=== PATIENT | female | born 1950 | race Caucasian/White ===

== ENCOUNTER 2018-04-21 05:44 | Inpatient (IN) | payer OTHER ==
[2018-04-21] MEDS ORDERED: NS 1,000 ML IV ONE (05:46)
[2018-04-21] MEDS ORDERED: ALTEPLASE 100 MG/100 ML VIAL IV ONE ×2 (05:47→06:06)
--- NOTE | 2018-04-21 05:51 | EDPHY ---
H & P Time Seen by Provider: 04/21/18 05:48 HPI/ROS: HPI CHIEF COMPLAINT: Left-sided weakness, stroke alert activated by EMS. HISTORY OF PRESENT ILLNESS: This is a 68-year-old female presents emergency room by EMS as a stroke alert. 911 was called by her. She lives in a private residence alone. EMS and police had to force entry in the house the patient called 911 and they were unable to determine any communication on the 911 phone. It was open line they came here heavy breathing. He was found face down on the ground when EMS arrived and police arrived they had to break into her house to get to her. Upon arrival they evaluated her noticed that she has significant left-sided weakness left arm left leg left facial droop expressive aphasia however she is able to follow commands she appears to be looking right and able to move her right upper extremity right lower extremity. Is unclear exactly what time this started however the patient is able to nod that it happened tonight. Patient arrived to the emergency room with significant left-sided weakness right gaze preference, left facial droop concern for severe stroke. Past Medical History: Unknown medical history Past Surgical History: unknown surgical history Social History: unknown Family History: Unknown ROS REVIEW OF SYSTEMS: Limited due to patient's clinical state. Exam Constitutional triage nursing summary reviewed, vital signs reviewed, awake/ alert. Eyes normal conjunctivae and sclera, EOMI, PERRLA. HENT normal inspection, atraumatic, moist mucus membranes, no epistaxis, neck supple/ no meningismus, no raccoon eyes. Respiratory clear to auscultation bilaterally, normal breath sounds, no respiratory distress, no wheezing. Cardiovascular rate normal, regular rhythm, no murmur, no edema, distal pulses normal. Gastrointestinal soft, non-tender, no rebound, no guarding, normal bowel sounds, no distension, no pulsatile mass. Genitourinary no CVA tenderness. Musculoskeletal no midline vertebral tenderness, full range of motion, no calf swelling, no tenderness of extremities, no meningismus, good pulses, neurovascularly intact. Skin pink, warm, & dry, no rash, skin atraumatic. Neurologic on exam the patient does follow commands she moves her right side okay, her left side she does not move does not move her left upper extremity or left lower extremity has a right gaze preference, left facial droop concerning for a significant left-sided weakness concerning for a stroke. Psychiatric normal mood/affect. Heme/Lymph/Immune no lymphadenopathy. Differential Diagnosis: Medical Decision Making: Plan for this patient IV establishment she will go directly to CT to have a CT scan head without contrast, CT angiogram head and neck, [facility] be consulted. Re-evaluation: Patient here in emergency room is unable to move her left arm or left leg. She has a right gaze preference left facial droop inability to move her left arm left leg concerning for a rather significant stroke Is unclear the exact time of onset however the patient does not that it happened tonight. She does have significant expressive aphasia. NIH Stroke Scale/Score (NIHSS) from [employer] on 04/21/2018 All calculations should be rechecked by clinician prior to use RESULT SUMMARY: 15 points NIH Stroke Scale INPUTS: 1A: Level of consciousness > 0 = Alert; keenly responsive 1B: Ask month and age > 2 = Aphasic 1C: 'Blink eyes' & 'squeeze hands' > 0 = Performs both tasks 2: Horizontal extraocular movements > 0 = Normal 3: Visual simpson > 0 = No visual loss 4: Facial palsy > 2 = Partial paralysis (lower face) 5A: Left arm motor drift > 4 = No movement 5B: Right arm motor drift > 0 = No drift for 10 seconds 6A: Left leg motor drift > 4 = No movement 6B: Right leg motor drift > 0 = No drift for 5 seconds 7: Limb Ataxia > 0 = No ataxia 8: Sensation > 0 = Normal; no sensory loss 9: Language/aphasia > 3 = Mute/global aphasia: no usable speech/auditory comprehension 10: Dysarthria > 0 = Normal 11: Extinction/inattention > 0 = No abnormality 0609AM: Patient here in the emergency room and ER room 2. The patient is CT scan head without contrast which is negative for bleed. Negative for infarct Additionally the patient had a CT angiogram head and neck that shows no large vessel dissection or aneurysm or thrombus The patient was consult with Dr. Jimmie Alvarado. On review with the patient the patient has significant left-sided weakness left arm left leg expressive aphasia left facial droop and prefers to look to the right concerning for rather large stroke. The patient through communication with myself as well as [facility] Dr. Alvarado, is able to report that her symptoms started 5:00 a.m. She is able to tell us by nodding yes to when they started she states no at 4:00 a.m. She did not wake up with the symptoms and states that they started at 5:00 a.m.. She denies being on any blood thinners She arrives very hypertensive 227/127. For this she has be given 10 mg IV hydralazine, and started on nicardipine drip to lower her blood pressure to the appropriate range for tPA. She does meet criteria for tPA given that she is in the stroke window Her symptoms started at 5:00 a.m. According to her and there very significant It is now 6:00 a.m.. We had a discussion with her and Neurology [facility] Dr. Alvarado, we discussed the medication of tPA with her risk versus benefit. She would like to proceed with the tPA and she understands the risks. Plan for tPA after blood pressure lowered. Plan for admission to the ICU status post tPA. Critical Care: Total Critical Care Time Spent Managing this Patient: 85 Minutes. This time was spent Exclusively with this patient. This Care was exclusive of procedures. The Organ System/life at risk was STROKE This Patient was in Critical Condition because stroke with left-sided deficits left arm left leg left facial droop expressive aphasia. Blood pressure down to 180 systolic. Will proceed with tPA. Source: Patient, EMS Constitutional: Initial Vital Signs Heart Rate 113 H 04/21/18 05:40 Respiratory Rate 20 04/21/18 05:40 Blood Pressure 209/148 H 04/21/18 05:40 O2 Sat (%) 96 04/21/18 05:40 O2 Delivery Mode Nasal Cannula O2 (L/minute) 2 Allergies/Adverse Reactions: No Known Allergies Allergy (Unverified 04/21/18 06:11) Medical Decision Making - Data Points Laboratory Results: Laboratory Results 04/21/18 05:45 04/21/18 05:45 Medications Given: Acetaminophen (Tylenol) 650 mg PO Q4HRS PRN PRN Reason: Pain, Mild/Fever, Can Take PO Stop: 10/18/18 06:29 Last Admin: 04/21/18 13:25 Dose: 650 mg Aspirin (Aspirin) 325 mg PO DAILY [facility] Stop: 10/19/18 14:14 Last Admin: 04/22/18 14:27 Dose: 325 mg Atorvastatin Calcium (Lipitor) 20 mg PO DAILY [facility] Stop: 10/19/18 14:14 Last Admin: 04/22/18 14:27 Dose: 20 mg Sodium Chloride (Ns) 1,000 mls @ 75 mls/hr IV CONT DIMITRY Stop: 10/18/18 06:29 Last Admin: 04/21/18 09:17 Dose: 1,000 mls Famotidine/Sodium Chloride (Pepcid 20 Mg (Premix)) 50 mls @ 200 mls/hr IV Q12HRS DIMITRY Stop: 10/18/18 12:14 Last Admin: 04/22/18 21:00 Dose: 50 mls Labetalol HCl (Labetalol Hcl) 10 mg IVP Q4H PRN PRN Reason: HYPERTENSION>180 SBP Stop: 10/19/18 14:27 Last Admin: 04/22/18 22:05 Dose: 10 mg Ondansetron HCl (Zofran Odt) 4 mg PO Q4HRS PRN PRN Reason: Nausea/Vomiting, Use 1st Stop: 10/18/18 06:29 Last Admin: 04/21/18 11:42 Dose: 4 mg Discontinued Medications Alteplase, Recombinant (Activase) 56.862 mg 0.81 mg/kg (56.862 mg) IV ONCE ONE PRN Reason: Protocol Stop: 04/21/18 06:07 Last Admin: 04/21/18 06:30 Dose: 56.862 mg Alteplase, Recombinant (Activase) 6.318 mg 0.09 mg/kg (6.318 mg) IV ONCE ONE PRN Reason: Protocol Stop: 04/21/18 06:07 Last Admin: 04/21/18 06:29 Dose: 6.318 mg Hydralazine HCl (Apresoline) 10 mg IVP EDNOW ONE Stop: 04/21/18 06:07 Last Admin: 04/21/18 06:01 Dose: 10 mg Sodium Chloride (Ns) 1,000 mls @ 500 mls/hr IV EDNOW ONE PRN Reason: Protocol Stop: 04/21/18 07:45 Last Admin: 04/21/18 06:15 Dose: 1,000 mls Nicardipine/Sodium Chloride (Cardene 0.1 Mg/Ml (Premix)) 200 mls @ 0 mls/hr IV CONT DIMITRY; Titrate PRN Reason: Protocol Stop: 10/18/18 06:29 Last Admin: 04/21/18 06:10 Dose: 200 mls Nicardipine/Sodium Chloride (Cardene 0.1 Mg/Ml (Premix)) 200 mls @ 0 mls/hr IV CONT DIMITRY; Titrate PRN Reason: Protocol Stop: 10/18/18 06:59 Last Admin: 04/22/18 03:11 Dose: 200 mls Potassium Chloride (Potassium Cl 10 Meq (Premix)) 100 mls @ 100 mls/hr IV Q1H DIMITRY Stop: 04/21/18 19:29 Last Admin: 04/21/18 21:36 Dose: 100 mls Labetalol HCl (Labetalol Hcl) 10 mg IVP Q4H PRN PRN Reason: HYPERTENSION Stop: 10/19/18 14:29 Last Admin: 04/22/18 14:27 Dose: 10 mg Point of Care Test Results: Chemistry 04/21/18 04/21/18 05:53 05:52 POC Sodium 139 mEq/L mEq/L (135-145) POC Potassium 3.2 mEq/L L mEq/L (3.3-5.0) POC Chloride 101 mEq/L mEq/L (97-110) POC BUN 10 mg/dL mg/dL (7-23) POC Creatinine 0.5 mg/dL L mg/dL (0.6-1.0) POC Glucose 162 mg/dL H mg/dL (70-100) POC Troponin I 0.00 ng/mL ng/mL (0.00-0.08) ISTAT H&H 04/21/18 05:52 POC Hgb 17.7 gm/dL H gm/dL (12.6-16.3) POC Hct 52 % H % (38-47) Departure - Departure Disposition: [facility] Acute Clinical Impression: CVA (cerebral vascular accident) Qualifiers: CVA mechanism: unspecified Qualified Code(s): I63.9 - Cerebral infarction, unspecified Condition: Critical
[2018-04-21] MEDS ORDERED: ONDANSETRON 4 MG/2 ML VIAL ONE ×2 (05:58→05:59)
[2018-04-21] MEDS ORDERED: hydrALAZINE 20 MG/ML VIAL ONE (05:59)
[2018-04-21 06:05] LABS: PLATELET COUNT 284 10^3/uL (150-400)
[2018-04-21] MEDS ORDERED: niCARdipine/NACL/200 ML BAG IV ONE (06:06)
[2018-04-21] MEDS ORDERED: hydrALAZINE 20 MG/ML VIAL IVP ONE (06:06)
[2018-04-21] MEDS ORDERED: ALTEPLASE 1 MG/ML SYR IV ONE (06:06)
[2018-04-21 06:13] LABS: INR 0.97 (0.83-1.16); PROTIME(PATIENT) 13.1 SEC (12.0-15.0)
[2018-04-21] MEDS ORDERED: niCARdipine/NACL 200 ML IV SCH (06:30)
[2018-04-21] MEDS ORDERED: ONDANSETRON 4 MG/2 ML VIAL IVP PRN (06:30)
[2018-04-21] MEDS ORDERED: ONDANSETRON DISINTEGRATING 4 MG TAB PO PRN (06:30)
[2018-04-21] MEDS: NS 1,000 ML IV SCH (09:17)
[2018-04-21] MEDS: niCARdipine/NACL 200 ML IV SCH ×2 (09:17→14:48)
--- NOTE | 2018-04-21 09:35 | GHP ---
DATE OF ADMISSION: 04/21/2018 SOURCE: Patient is able to provide some minimal history as she has notable aphasia. She is able to nod her head and say some yes/no answers. EMR was reviewed and case discussed with ED provider. CHIEF COMPLAINT: Left-sided weakness, aphasia. HISTORY OF PRESENT ILLNESS: This is a pleasant 68-year-old female with past medical history signific ant for HTN, HLD, who presents to the emergency department today via EMS after she called 911. The p atient was unresponsive on the phone, but jigger crown pouncing machine operator could hear patient breathing. Local fire departme nt and law enforcement broke through the patient's home, found her on the floor in a well-kept home. The patient was noted to be aphasic. She was brought in as a stroke alert. The patient was able to communicate to the ED provider that her symptoms started approximately 5 a.m., shortly before she ca lled 911. When responders found the patient, she was face down on the floor and was not able to move her left arm. In the ED, patient underwent stat CT head, CTA head and neck which were all negative. [facility] was consulted. After consideration and discussion with the patient, tPA was adm inistered. The patient's initial NIH score was 17. Since that time, it has improved down to 7. The patient continues to have significant left-sided deficit, left facial drooping, but is able to answe r a few more questions than previously. The patient acknowledges she has a history of hypertension. Unable to obtain her med list at this time due to aphasia. REVIEW OF SYSTEMS: Limited, except as noted above due to patient's aphasia. ALLERGIES: No known drug allergies. HOME MEDICATIONS: Unknown. PAST MEDICAL HISTORY: Significant for HTN, HLD. PAST SURGICAL HISTORY: . FAMILY HISTORY: Negative for CVA. SOCIAL HISTORY: Patient lives alone in an apartment. She reports that she has a son who lives here in town. She denies any tobacco, drugs, or alcohol use. CODE STATUS: Full. PHYSICAL EXAMINATION: VITAL SIGNS: Upon arrival to the emergency department, blood pressure is 209/ 148, heart rate 113, respiratory rate 20, O2 sat is 96% on room air. The patient's temperature is 36 .9. Vitals available at time of interview: Blood pressure 156/70, heart rate was 105 to 120s, respi ratory rate 22, O2 saturation 96% on room air, temperature 36.7. GENERAL: No acute distress. Abisai alonso elderly female is lying in bed. She is awake and interactive. HEAD: Normocephalic, atraumatic. EYES: Extraocular muscles are grossly intact. Pupils equal, round, react to light bilaterally and symmetric. No lens reflex appreciated bilaterally. No scleral icterus or conjunctival injection. ENT: The patient has a contusion to the left side of her tongue. Mucous membranes appear moist. No nasal discharge. NECK: Supple. Trachea midline. CV: Tachycardic, regular. No murmurs, rubs, or gallops appreciated. RESPIRATORY: Unlabored breathing. Diminished breath sounds bibasilarly with decreased inspiratory effort. Otherwise clear. No respiratory distress. ABDOMEN: Positive bowel s ounds. Soft, nontender to palpation. No rebound, guarding, or masses appreciated. : Casanova morgan ter in place. No suprapubic tenderness to palpation. EXTREMITIES: Patient's strength on the right is intact and grossly normal. On the left, patient is able to lift her leg just barely off the bed c ompared to the right. She is able to move her foot. Her left arm is flaccid. No sensation per waldo ent. NEURO: Left facial drooping, slurred speech, aphasia. Ocular movements are intact as noted ab ove. Extremity strength as noted above. PSYCH: Patient is not agitated. She is pleasant and coope rative. She is little frustrated due to her aphasia. LABORATORY STUDIES: WBCs 10.91, H and H is 17.6 and 51.3, MCV 90.2, platelet count 284, neutrophil p ercent 80.2. PT 13.1, INR 0.97, PTT is 25.9. Sodium is 136, potassium 3.6, chloride is 103, CO2 is 22, anion gap 11, BUN is 12, creatinine 0.6, GFR of greater than 60, glucose 161. A1c pending. Calc ium 9.1. Troponin is negative. Chest x-ray: Image reviewed as well as report. Negative for acute findings. CT head, CTA head and neck preliminary reports reviewed. Mild calcified plaque at carotid siphon. O therwise, no thrombus, stenosis or aneurysm. Mild atrophy and chronic white matter ischemic changes, nothing acute. EKG reviewed myself showing sinus tachycardia with left axis deviation, rate in the 100s. QTc is [address] depression in lateral leads. ASSESSMENT AND PLAN: Pleasant 68-year-old female presents with sudden onset left-sided weakness and aphasia. 1. Acute cerebrovascular accident. The patient admitted to ICU status post tPA. MRI, echocardiogra m with bubble, lipid panel, A1c ordered. Usual stroke protocol with tPA has been ordered. Neurology consultation this morning. PT, OT, ST. Patient's neurologic symptoms appear to be improving status post tPA. She does have a tongue contusion on the left side. Did not have any urinary or bowel inc ontinence. At this time, no evidence of seizure. Monitor closely. 2. Malignant hypertension or hypertensive emergency. The patient reports a history of hypertension. It is unknown which medications she is currently on. She has been given hydralazine and started on nicardipine drip with improvement in her blood pressures. 3. Tachycardia. The patient has sinus tachycardia. She does appear a little bit anxious. She dolores es any shortness of breath, chest pain. She is not hypoxic. Some gentle IV fluid hydration. Monito r her tachycardia with telemetry at this time. Troponin is negative. 4. Hyperlipidemia. Check a lipid panel. 5. Polycythemia. Baseline hemoglobin and hematocrit unknown, likely related to dehydration. IV flu ids as noted above. The patient is afebrile. No evidence of active bleeding. 6. Hyperglycemia, mildly elevated glucose upon arrival, likely is not fasting. We will check A1c an d monitor blood sugars as appropriate. 7. Fluid, electrolyte, nutrition. IV fluids for gentle hydration, normal saline. Electrolyte monit oring, replace if needed. Patient is currently n.p.o. pending speech therapy evaluation due to her l eft facial droop. 8. Prophylaxis. Sequential compression devices at this time only, holding anticoagulation as patien t just received tPA. 9. Code status is full. 10. Disposition: Patient admitted to inpatient status in the ICU for close neurologic and cardiac m onitoring status post tPA. Anticipate greater than 2 midnight stay. /[id number]/MODL
--- NOTE | 2018-04-21 10:03 | HOSPPROG ---
Hospitalist Progress Note Assessment/Plan: #Suspect CVA: -MRI, echo, speech, PT/OT,telemetry. lipid panel -Cardene to keep SBP <180 -Neurology consult appreciated -repeat CTH 24hr post t-pA #Hypokalemia: replete #Tachycardia: suspect from pain from catheter. May need to pull and place external one #Diet: dysphagia diet #DVT ppx: SCD Disp: ICU admission for serial neuro check, repeat CTH # Subjective: dull pain in pubic region from catheter. No abdominal pain Objective: Vital Signs Temp Pulse Resp BP Pulse Ox 37 C 116 H 22 H 159/71 H 96 04/21/18 09:30 04/21/18 09:30 04/21/18 09:30 04/21/18 09:30 04/21/18 09:30 04/20/18 04/21/18 04/22/18 05:59 05:59 05:59 Intake Total 500 Balance 500 PT 13.1 SEC (12.0-15.0) 04/21/18 05:45 INR 0.97 (0.83-1.16) 04/21/18 05:45 - Time Spent With Patient Time Spent with Patient: greater than 35 minutes Time Spent with Patient: Greater than 35 minutes spent on this patients care, greater than 50% of time spent counseling, educating, and coordinating care regarding the above mentioned plan. - Physical Exam Constitutional: no apparent distress Eyes: PERRL Ears, Nose, Mouth, Throat: moist mucous membranes Cardiovascular: regular rate and rhythym, No systolic murmur Gastrointestinal: normoactive bowel sounds, No tenderness Genitourinary: no bladder fullness, mora in urethra (states dull pain from catheter), No other (No CVA, suprapubic TTP) Skin: warm Musculoskeletal: other (LUE weakness) Neurologic: facial droop (left), other (dysarthia) Psychiatric: interacting appropriately ICD10 Worksheet Patient Problems: Problems Problem Status Onset CVA (cerebral vascular accident) Acute
[2018-04-21] MEDS: FAMOTIDINE 20 MG/NACL 50 ML IV SCH ×2 (12:20→23:42)
--- NOTE | 2018-04-21 12:41 | PDMN ---
Medical Necessity Medical necessity: Pt meets IP criteria as of 04/21/2018 pre and EVELIA M-83 ( Stroke: Ischemic); est los > 2 mn for ongoing tx and management of acute CVA with administration of TPA as well as HTN; requiring ICU care, neurology consultation, therapies, cardene gtt for BP control, and management of chronic conditions including polythycemia and hyperglycemia.
--- NOTE | 2018-04-21 12:58 | ECHO ---
[email or web address] [address] [address] Main: [phone] Fax: Transthoracic Echocardiogram Name: MELCHOR BARBOUR MR#: [id number] Study Date: 04/21/2018 Study Time: 11:16 AM Date of : 1950 Age: 68 year(s) Height: ( ) Weight: ( ) BSA: Gender: Female Examination: Echo Indication: stroke Image Quality: Fair Contrast: Requested by: Monie Oliver BP: 163 mmHg/84 mmHg Heart Rate: Rhythm: Indication: stroke Procedure Staff Beam Dyer Operator: Denisse Owens RDCS Reading Physician: Anton Vega MD Requesting Provider: Conclusions: Mild concentric LV hypertrophy. Global hypercontractility of the left ventricle. The ejection fraction is estimated to be 80-85 %. Trace anterior pericardial effusion versus fat pad. Measurements: Chambers Valvular Assessment AV/MV Valvular Assessment TV/PV Normal Normal Normal Name Value Range Name Value Range Name Value Range Ao Stacy (MM): 3.2 cm (2.2 cm-3.7 AV Vmax: 1.49 m/s (1 m/s-1.7 cm) m/s) IVSd (2D): 0.9 cm (0.6 cm-1.1 AV meanP mmHg ( - ) cm) MV E Vmax: 0.76 m/s ( - ) LVDd (2D): 4.1 cm (3.9 cm-5.3 MV A Vmax: 1.23 m/s ( - ) cm) MV E/A: 0.62 ( - ) LVDs (2D): 1.9 cm (2.1 cm-4 cm) LVPWd (2D): 0.9 cm ( - ) LVEF (2D): 84 (>=54 %) EF Range: 80-85 % Continued Measurements: Chambers Valvular Assessment AV/MV Name Value Name Value LADs: 3.2 cm MV E' Septal: 0.07 m/s LADs Lon.8 cm MV E/E' Septal: 11.30 LA Area: 12.7 cm2 MV E/E' Lateral: 13.70 Patient: MELCHOR BARBOUR Study Date: 04/21/2018 Page 1 of 2 11:16 AM Additional Vessels Name Value Ao Ascendin.4 cm Findings: Left Ventricle: Normal size left ventricle. Mild concentric LV hypertrophy. Global hypercontractility of the left ventricle. The ejection fraction is estimated to be 80-85 %. No regional wall motion abnormality. Normal diastolic LV function. Right Ventricle: Normal size right ventricle. Left Atrium: The left atrium is normal in size. Right Atrium: The right atrium is normal in size. Mitral Valve: The mitral valve is normal in appearance and function. Aortic Valve: The aortic valve is normal in appearance and function. Tricuspid Valve: The tricuspid valve is normal in appearance and function. Pulmonic Valve: Pulmonary valve not well visualized. Aorta: The aorta is normal. Pericardium: Trace anterior pericardial effusion versus fat pad. (No Signature Object) Patient: MELCHOR BARBOUR Study Date: 04/21/2018 Page 2 of 2 11:16 AM [id number]
[2018-04-21] MEDS: ACETAMINOPHEN 325 MG TAB PO PRN (13:25)
--- NOTE | 2018-04-21 13:38 | ECHO ---
[email or web address] [place] [id number] Main: [phone] Fax: Transthoracic Echocardiogram Name: MELCHOR BARBOUR MR#: [id number] Study Date: 04/21/2018 Study Time: 01:12 PM Date of : 1950 Age: 68 year(s) Height: ( ) Weight: ( ) BSA: Gender: Female Examination: Limited Echo Indication: Cerebrovascular: prior CVA, Add on Bubble Image Quality: Contrast: Requested by: Monie Oliver BP: / Heart Rate: Rhythm: Indication: Cerebrovascular: prior CVA, Add on Bubble Procedure Staff Gear Technician: Tawanda Carr RDCS Reading Physician: Anton Vega MD Requesting Provider: Conclusions: An agitated saline study was performed and was negative for intracardiac shunting. Measurements: Chambers Valvular Assessment AV/MV Valvular Assessment TV/PV Normal Normal Normal Name Value Range Name Value Range Name Value Range Continued Measurements: Findings: Left Atrium: An agitated saline study was performed and was negative for intracardiac shunting. (No Signature Object) Patient: MELCHOR BARBOUR Study Date: 04/21/2018 Page 1 of 1 01:12 PM [id number]
[2018-04-21] MEDS: POTASSIUM Cl (KCl) 100 ML IV SCH ×3 (17:12→21:36)
--- NOTE | 2018-04-21 18:07 | ASMTCMCOM ---
CM Note CM Note Notes: 68yo female admitted for L sided weakness, Aphasia, CVA. She has a Hx of HTN, HLD. Being tx with TPA. Therapies to eval. Patient lives alone, she reports that she has a son, Reuben Celestin [phone] who lives in [place]. made a call to the # given and a person with a different name answered the phone. Patient also gave the name of a friend Debra Herbert, ([facility]) [phone]. Trying to reach the son. CM to follow. Date Signed: 04/21/2018 06:06 PM Electronically Signed By:Karen Luu LCSW
--- NOTE | 2018-04-21 18:23 | GCON ---
PULMONARY/CRITICAL CARE CONSULTATION. DATE OF CONSULTATION: 04/21/2018 REFERRING PHYSICIAN: Sharlene Wills MD REASON FOR REFERRAL: Evaluation and management of hypertension in the setting of a CVA. HISTORY: The patient is a 68-year-old woman with a history of hypertension who was brought to the em ergency department early this morning after the patient called 911. She was unable to respond to EMS when they arrived, but they were able to break into her home, and she was found to be aphasic. She also had left hemiparesis. Neurology was consulted, and the patient was given tPA, with improvement of her NIH score from 17 down to 7. She continues to have significant left-sided weakness and facial droop. She is able to follow commands but has expressed some expressive aphasia. PAST MEDICAL HISTORY: Hypertension. MEDICATIONS: Unknown. ALLERGIES: No known drug allergies. SOCIAL HISTORY: The patient lives alone in an apartment. She currently has a son in town. She dolores es alcohol or drugs. FAMILY HISTORY: Negative for CVA. REVIEW OF SYSTEMS: A complete review of systems is limited by the patient's aphasia. PHYSICAL EXAMINATION: GENERAL: The patient is sleeping but arouses and is able to follow simple com mands. VITAL SIGNS: Her blood pressure is 143/103, down from a maximum of 168/123 this morning. He art rate is 97. She is afebrile. Oxygen saturations are 94% on 2 L. HEENT: Normocephalic and atra umatic. No icterus. NECK: No JVD. Trachea is midline. CHEST: Clear to auscultation. CARDIAC: Regular rate and rhythm, without murmur. ABDOMEN: Soft, nontender. Bowel sounds are present. EXTR EMITIES: No clubbing, cyanosis, or edema. NEURO: The patient is arousable and alert. She follows simple commands appropriately. She has left-sided hemiparesis. She has expressive aphasia. LABORATORY: White blood count is 10.9, with a hemoglobin of 17.7. Chemistry group is remarkable for a potassium of 3.2. Glucose is 162. A chest x-ray shows no acute findings. Images reviewed by me. A CT scan of the head shows diffuse atrophy. There is no significant abnormality seen on a CT marcial o of the head and neck. ASSESSMENT: 1. Acute cerebrovascular accident. The patient is clinically improved but still has significant def icits, primarily with left-sided weakness and aphasia. She has received tissue plasminogen activator . 2. Hypertension. The patient has acute and chronic hypertension. She is currently on a nicardipine drip in order to maintain blood pressure with a goal systolic of less than 160. 3. Hyperglycemia. The patient's blood sugars are in the 160s. 4. Hypokalemia. RECOMMENDATIONS: 1. Potassium replacement. 2. Follow blood sugars. Insulin may be added if they remain elevated. 3. Continue nicardipine for blood pressure. 4. Neurology consultation as well as imaging and begin therapies tomorrow. /[id number]/MODL
--- NOTE | 2018-04-21 19:57 | NEUROPROG ---
Assessment: [id number] - Neurology Consult: - CC: Probable Stroke - HPI: Pt brought by EMS to [facility] ER on 04/21/18 for left sided weakness and aphasia. Head CT and head/neck CTA showed no acute changes. Pt reported her symptoms had begun around 5 am. Teleneurology recommended TPA for suspected acute stroke so it was given and pt placed in ICU. I initially saw the patient on . She had severe expressive aphasia and left sided weakness. Brain MRI and head CT were pending. - PMHx: HTN, HLD, c-sect - Home Meds: none known - SHx: lives alone FHx: negative for CVA - ROS: Pt denied acute fever, total vision loss, active severe chest pain, respiratory failure, total body severe rash, total bowel/bladder incontinence, psychosis, active seizures, or active bleeding - O: VS reviewed General: Alert Eyes: Fundoscopic exam not able to visualize optic disks CV: Heart RRR, no murmur, no carotid bruit Lungs: Clear to auscultation bilaterally, no rhonchi or rales Neuro: - Mental: . Oriented x 0 . concentration appears normal . speech fluency/comprehension shows severe expressive aphasia . memory appears normal . fund of knowledge cannot be tested - Cranial Nerves: . II: PERRL, VFFTC . III/IV/: EOMI, no nystagmus, normal smooth pursuits, no Ptosis . V: facial sensation intact to LT . VII: mild left facial weakness . VIII: hearing intact to conversation . IX/X: uvula raises symmetrically . XI: SCM shows left sided weakness . XII: tongue protrudes midline w/nl strength - Motor: . Tone: reduced in left arm . Strength: left arm severe weakness and moderate left leg weakness - Reflexes: B/L patella 2/4 - Sensory: reduced sensation in left arm - Coord: no coordination problems noted - Gait: deferred - NIH SS 9 - Labs: 04/21/18- CBC WBC 10.91H Hct 51.3H, coags wnl, CHem Gluc 161H, H1AC 5.9 - Rads: 04/21/18- Head CT wo: no acute bleed noted (I personally visualized the images on 04/21/18) 04/21/18- Head/Neck CTA: no thrombus, no stenosis, no aneurysm, mild calcified plaque in carotid siphon 04/21/18- TTE: no cardiac thrombus noted, EF 80-85% - Assessment: 1. Probable Stroke causing left sided weakness and expressive aphasia on - Plan: - Head CT 24 hours after IV TPA, if no bleed seen then begin aspirin 325 mg qd ( change to aspirin 81 mg qd on hospital discharge) - Brain MRI wo - 24 hour telemetry - blood pressure < 180/110 x 72 hours then < 140/90 - LDL goal < 70 - H1AC goal < 7.0 - PT/OT/Speech to determine rehab needs - F/U in neurology clinic 1-4 weeks after hospital discharge Objective: Vital Signs Temp Pulse Resp BP Pulse Ox 37.1 C 111 H 21 H 156/69 H 95 04/21/18 19:30 04/21/18 19:30 04/21/18 19:30 04/21/18 19:30 04/21/18 19:30 04/20/18 04/21/18 04/22/18 05:59 05:59 05:59 Intake Total 1426 Output Total 1000 Balance 426 PT 13.1 SEC (12.0-15.0) 04/21/18 05:45 INR 0.97 (0.83-1.16) 04/21/18 05:45 Allergies/Adverse Reactions: No Known Allergies Allergy (Unverified 04/21/18 06:11)
[2018-04-22] MEDS: niCARdipine/NACL 200 ML IV SCH (03:11)
[2018-04-22] MEDS: FAMOTIDINE 20 MG/NACL 50 ML IV SCH ×2 (08:23→21:00)
--- NOTE | 2018-04-22 12:25 | NEUROPROG ---
Assessment: [id number] - Neurology Consult: - CC: Probable Stroke - Narrative Summary: Pt brought by EMS to [facility] ER on 04/21/18 for left sided weakness and aphasia. Head CT and head/neck CTA showed no acute changes. Pt reported her symptoms had begun around 5 am. Teleneurology recommended TPA for suspected acute stroke so it was given and pt placed in ICU. I initially saw the patient on . She had severe expressive aphasia and left sided weakness. Brain MRI and head CT were pending. - HPI: F/U 04/22/18. Head CT showed no bleed. Brain MRI pending later today or tomorrow. Telemetry showed no afib. Pt still with significant problems speaking and left sided weakness. - PMHx: HTN, HLD, c-sect - Home Meds: none known - SHx: lives alone FHx: negative for CVA - ROS: Pt denied acute fever, total vision loss, active severe chest pain, respiratory failure, total body severe rash, total bowel/bladder incontinence, psychosis, active seizures, or active bleeding - Labs: 04/21/18- CBC WBC 10.91H Hct 51.3H, coags wnl, CHem Gluc 161H, H1AC 5.9 04/22/18- LDL 150H - Rads: 04/21/18- Head CT wo: no acute bleed noted 04/21/18- Head/Neck CTA: no thrombus, no stenosis, no aneurysm, mild calcified plaque in carotid siphon 04/21/18- TTE: no cardiac thrombus noted, EF 80-85% 04/21/18- 24 hour telemetry: no afib noted 04/22/18- Head CT: no bleed noted, probable - Assessment: 1. Right sided Stroke (likely basal ganglia based on head CT results) causing left sided weakness and speech problems on 04/21/18, status post-TPA: CTA head/ neck, TTE, and 24 hour telemetry showed no clear cause of stroke however LDL 150 and given basal ganglia location of stroke this is likely small vessel cause of CVA. H1AC 5.9. Treatment plan will be aspirin and modifying stroke risk factors. - Plan: - Begin aspirin 325 mg qd (change to aspirin 81 mg qd on hospital discharge) for stroke prevention - Brain MRI wo - blood pressure < 180/110 x 48 hours then < 140/90 - LDL goal < 70 (150), recommend beginning statin - H1AC goal < 7.0 (59) - PT/OT/Speech to determine rehab needs - F/U in neurology clinic 1-4 weeks after hospital discharge - 35 min spent with patient, majority of time spent discussing stroke and treatment plan Objective: Vital Signs Temp Pulse Resp BP Pulse Ox 36.5 C 90 17 163/85 H 92 04/22/18 04:30 04/22/18 11:52 04/22/18 11:52 04/22/18 11:52 04/22/18 11:52 Laboratory Results 04/22/18 05:30 04/21/18 04/22/18 04/23/18 05:59 05:59 05:59 Intake Total 2840 Output Total 2000 Balance 840 PT 13.1 SEC (12.0-15.0) 04/21/18 05:45 INR 0.97 (0.83-1.16) 04/21/18 05:45 Allergies/Adverse Reactions: No Known Allergies Allergy (Unverified 04/21/18 06:11)
--- NOTE | 2018-04-22 13:29 | ASMTCMCOM ---
CM Note CM Note Notes: Patient continuing to have L sided weakness and expressive aphasia. Brain MRI pending today or tomorrow. Therapies recommending inpatient rehab since patient was independent prior to admission. We located her son Zhang'eloina #[phone] and have left him a message. Case Management will follow. Date Signed: 04/22/2018 01:29 PM Electronically Signed By:Trena Stover RN
[2018-04-22] MEDS ORDERED: LABETALOL HCL 5 MG/ML 20 ML MDV IVP PRN (14:06)
--- NOTE | 2018-04-22 14:08 | HOSPPROG ---
Hospitalist Progress Note Assessment/Plan: #Right-sided CVA: (basal ganglia) -MRI pending -Speech, PT/OT - SBP <180 for 48hr, then <140 -no hemorrhagic conversion on repeat CTH -ASA 325mg (81mg at DC), Lipitor -Inpt rehab consulted -discussed with Dr. Dubose #Hypokalemia: replete #Tachycardia: suspect from pain from catheter. May need to pull and place external one #Diet: dysphagia diet #DVT ppx: SCD Disp: ICU admission for serial neuro check, MRI # Subjective: still with discomfort from mora Objective: Vital Signs Temp Pulse Resp BP Pulse Ox 36.5 C 90 17 163/85 H 92 04/22/18 04:30 04/22/18 11:52 04/22/18 11:52 04/22/18 11:52 04/22/18 11:52 Laboratory Results 04/22/18 05:30 04/21/18 04/22/18 04/23/18 05:59 05:59 05:59 Intake Total 2840 Output Total 2000 Balance 840 PT 13.1 SEC (12.0-15.0) 04/21/18 05:45 INR 0.97 (0.83-1.16) 04/21/18 05:45 - Time Spent With Patient Time Spent with Patient: greater than 35 minutes Time Spent with Patient: Greater than 35 minutes spent on this patients care, greater than 50% of time spent counseling, educating, and coordinating care regarding the above mentioned plan. - Physical Exam Constitutional: obese Eyes: PERRL Ears, Nose, Mouth, Throat: moist mucous membranes Cardiovascular: regular rate and rhythym Respiratory: no respiratory distress Gastrointestinal: normoactive bowel sounds Genitourinary: mora in urethra Skin: warm Musculoskeletal: other (signficant LUE/LLE weakness) Neurologic: facial droop (left), other (dysarthria. Can express herself, just difficult to understand) Psychiatric: interacting appropriately ICD10 Worksheet Patient Problems: Problems Problem Status Onset CVA (cerebral vascular accident) Acute
[2018-04-22] MEDS ORDERED: LORazepam 2 MG/ML INJ IVP PRN (14:10)
--- NOTE | 2018-04-22 14:23 | PDINTPN ---
[facility] Progress Note Assessment/Plan: Assessment: Acute CVA: Likely right basal ganglia small vessel ischemic stroke. Has left hemiparesis as well as speech deficit, which is more likely to be due to poor muscle control HTN: Just stopped nicardipine, SBP has risen up to limit of 180. Has chronic HTN. Hyperglycemia: Normalized this AM. Hypokalemia: Corrected. Plan: Follow BP, use labetalol PRN. MRI tomorrow. ST/PT/OT. Start daily aspirin. Inpatient rehab consultation. 04/22/18 14:26 04/22/18 14:27 Subjective: Alert, denies pain. Still with expressive aphasia/dysarthria Objective: Vital Signs Temp Pulse Resp BP Pulse Ox 36.5 C 90 17 163/85 H 92 04/22/18 04:30 04/22/18 11:52 04/22/18 11:52 04/22/18 11:52 04/22/18 11:52 Laboratory Results 04/22/18 05:30 04/21/18 04/22/18 04/23/18 05:59 05:59 05:59 Intake Total 2840 Output Total 2000 Balance 840 PT 13.1 SEC (12.0-15.0) 04/21/18 05:45 INR 0.97 (0.83-1.16) 04/21/18 05:45 CTH: suspected right basal ganglia infarct. No hemorrhage. Images reviewed by me. Physical Exam - Physical Exam General Appearance: alert, no apparent distress EENT: normal ENT inspection Neck: normal inspection Respiratory: lungs clear, normal breath sounds Cardiac/Chest: regular rate, rhythm, No edema Abdomen: normal bowel sounds, non-tender Skin: normal color, warm/dry Extremities: non-tender Neuro/Psych: alert, normal mood/affect, motor weakness (left hemiplegia) ICD10 Worksheet Patient Problems: Problems Problem Status Onset CVA (cerebral vascular accident) Acute
[2018-04-22] MEDS: ATORVASTATIN CALCIUM 20 MG TAB PO SCH (14:27)
[2018-04-22] MEDS: ASPIRIN 325 MG TAB PO SCH (14:27)
[2018-04-22] MEDS ORDERED: LABETALOL HCL 20 MG/4 ML INJ IVP PRN ×2 (14:30)
[2018-04-22] MEDS: LABETALOL HCL 20 MG/4 ML INJ IVP PRN ×2 (17:07→22:05)
[2018-04-23] MEDS: NS 1,000 ML IV SCH (02:12)
[2018-04-23] MEDS ORDERED: niCARdipine/NACL/200 ML BAG IV ONE (06:07)
[2018-04-23] MEDS: niCARdipine/NACL 200 ML IV SCH ×2 (06:44→08:42)
[2018-04-23] MEDS: ASPIRIN 325 MG TAB PO SCH (08:42)
[2018-04-23] MEDS: ATORVASTATIN CALCIUM 20 MG TAB PO SCH (08:42)
[2018-04-23] MEDS: FAMOTIDINE 20 MG/NACL 50 ML IV SCH ×2 (08:42→19:55)
[2018-04-23] MEDS ORDERED: LISINOPRIL 20 MG TAB PO SCH (10:00)
--- NOTE | 2018-04-23 12:46 | HOSPPROG ---
Hospitalist Progress Note Assessment/Plan: #Right-sided CVA: (basal ganglia) -Speech, PT/OT -BP up this morning. Add ACEI and hydral PRN, SBP goal <140 -no hemorrhagic conversion on repeat CTH, MRI pending -ASA 325mg (81mg at DC), Lipitor -Inpt rehab consulted #Hypokalemia: replete #Tachycardia: suspect from pain from catheter. Now resolved #Diet: dysphagia diet #DVT ppx: SCD Disp: transfer to med-surg. Case d/w Dr. Anglin # Subjective: speech mildly improved. No VAZQUEZ or CP Objective: Vital Signs Temp Pulse Resp BP Pulse Ox 36.6 C 89 22 H 151/102 H 94 04/23/18 08:00 04/23/18 10:00 04/23/18 10:00 04/23/18 10:00 04/23/18 10:00 Laboratory Results 04/23/18 06:15 04/22/18 04/23/18 04/24/18 05:59 05:59 05:59 Intake Total 2840 1959 Output Total 2000 495 Balance 840 1464 PT 13.1 SEC (12.0-15.0) 04/21/18 05:45 INR 0.97 (0.83-1.16) 04/21/18 05:45 - Time Spent With Patient Time Spent with Patient: greater than 35 minutes Time Spent with Patient: Greater than 35 minutes spent on this patients care, greater than 50% of time spent counseling, educating, and coordinating care regarding the above mentioned plan. - Physical Exam Constitutional: obese Ears, Nose, Mouth, Throat: moist mucous membranes Cardiovascular: regular rate and rhythym Respiratory: no respiratory distress Gastrointestinal: normoactive bowel sounds Genitourinary: no bladder fullness Skin: warm Musculoskeletal: other (significant LUE/LLE weakness) Neurologic: AAOx3, CN II-XII Intact, facial droop (left), other (dysarthria) Psychiatric: interacting appropriately ICD10 Worksheet Patient Problems: Problems Problem Status Onset CVA (cerebral vascular accident) Acute
--- NOTE | 2018-04-23 12:54 | NEUROPROG ---
Assessment: [id number] - Neurology Consult: - CC: Probable Stroke - Narrative Summary: Pt brought by EMS to [facility] ER on 04/21/18 for left sided weakness and aphasia. Head CT and head/neck CTA showed no acute changes. Pt reported her symptoms had begun around 5 am. Teleneurology recommended TPA for suspected acute stroke so it was given and pt placed in ICU. I initially saw the patient on . She had severe expressive aphasia and left sided weakness. Brain MRI and head CT were pending. - F/U 04/22/18. Head CT showed no bleed. Brain MRI pending later today or tomorrow. Telemetry showed no afib. Pt still with significant problems speaking and left sided weakness. - HPI: F/U 04/23/18. Brain MRI pending today. No afib noted on telemetry. Pt stable. No new complaints. - PMHx: HTN, HLD, c-sect - Home Meds: none known - SHx: lives alone FHx: negative for CVA - ROS: Pt denied acute fever, total vision loss, active severe chest pain, respiratory failure, total body severe rash, total bowel/bladder incontinence, psychosis, active seizures, or active bleeding - Labs: 04/21/18- CBC WBC 10.91H Hct 51.3H, coags wnl, CHem Gluc 161H, H1AC 5.9 04/22/18- LDL 150H - Rads: 04/21/18- Head CT wo: no acute bleed noted 04/21/18- Head/Neck CTA: no thrombus, no stenosis, no aneurysm, mild calcified plaque in carotid siphon 04/21/18- TTE: no cardiac thrombus noted, EF 80-85% 04/21/18- 24 hour telemetry: no afib noted 04/22/18- Head CT: no bleed noted, probable - Assessment: 1. Right sided Stroke (likely basal ganglia based on head CT results) causing left sided weakness and speech problems on 04/21/18, status post-TPA: CTA head/ neck, TTE, and 24 hour telemetry showed no clear cause of stroke however LDL 150 and given basal ganglia location of stroke this is likely small vessel cause of CVA. H1AC 5.9. Treatment plan will be aspirin and modifying stroke risk factors. - Plan: - Continue aspirin 325 mg qd (change to aspirin 81 mg qd on hospital discharge) for stroke prevention - Brain MRI wo - blood pressure < 180/110 x 24 hours then < 140/90 - LDL goal < 70 (150), recommend beginning statin - H1AC goal < 7.0 (59) - PT/OT/Speech to determine rehab needs - F/U in neurology clinic 1-4 weeks after hospital discharge - 35 min spent with patient, majority of time spent discussing stroke and treatment plan Objective: Vital Signs Temp Pulse Resp BP Pulse Ox 36.6 C 89 22 H 151/102 H 94 04/23/18 08:00 04/23/18 10:00 04/23/18 10:00 04/23/18 10:00 04/23/18 10:00 Laboratory Results 04/23/18 06:15 04/22/18 04/23/18 04/24/18 05:59 05:59 05:59 Intake Total 2840 1959 Output Total 1999 495 Balance 840 1464 PT 13.1 SEC (12.0-15.0) 04/21/18 05:45 INR 0.97 (0.83-1.16) 04/21/18 05:45 Allergies/Adverse Reactions: No Known Allergies Allergy (Unverified 04/21/18 06:11)
--- NOTE | 2018-04-24 07:51 | CPEKG ---
Test Reason : OPEN Blood Pressure : / mmHG Vent. Rate : 109 BPM Atrial Rate : 110 BPM P-R Int : 158 ms QRS Dur : 090 ms QT Int : 355 ms P-R-T Axes : 066 -38 034 degrees QTc Int : 479 ms Sinus tachycardia Left axis deviation Consider anterior infarct Minimal ST depression, lateral leads Confirmed by Rakesh Petty ([id number]) on 04/24/2018 7:50:53 AM Referred By: Confirmed By:Rakesh Petty
[2018-04-24] MEDS: FAMOTIDINE 20 MG/NACL 50 ML IV SCH (07:54)
[2018-04-24] MEDS: ATORVASTATIN CALCIUM 20 MG TAB PO SCH (08:04)
[2018-04-24] MEDS: LISINOPRIL 20 MG TAB PO SCH (08:04)
[2018-04-24] MEDS: ASPIRIN 325 MG TAB PO SCH (08:04)
[2018-04-24] MEDS: ACETAMINOPHEN 325 MG TAB PO PRN (08:04)
[2018-04-24] MEDS: hydrALAZINE 25 MG TAB PO PRN ×2 (08:19→16:23)
--- NOTE | 2018-04-24 11:19 | NEUROPROG ---
Assessment: [id number] - Neurology Consult: - CC: F/U for Stroke - Narrative Summary: Pt brought by EMS to [facility] ER on 04/21/18 for left sided weakness and aphasia. Head CT and head/neck CTA showed no acute changes. Pt reported her symptoms had begun around 5 am. Teleneurology recommended TPA for suspected acute stroke so it was given and pt placed in ICU. I initially saw the patient on . She had severe expressive aphasia and left sided weakness. Brain MRI and head CT were pending. - F/U 04/22/18. Head CT showed no bleed. Brain MRI pending later today or tomorrow. Telemetry showed no afib. Pt still with significant problems speaking and left sided weakness. - F/U 04/23/18. Brain MRI pending today. No afib noted on telemetry. Pt stable. No new complaints. - HPI: F/U 04/24/18. Brain MRI showed right sided subcortical stroke as well as probable amyloid angiopathy. No afib noted on telemetry. Pt stable. - PMHx: HTN, HLD, c-sect - Home Meds: none known - SHx: lives alone FHx: negative for CVA - ROS: Pt denied acute fever, total vision loss, active severe chest pain, respiratory failure, total body severe rash, total bowel/bladder incontinence, psychosis, active seizures, or active bleeding - Labs: 04/21/18- CBC WBC 10.91H Hct 51.3H, coags wnl, CHem Gluc 161H, H1AC 5.9 04/22/18- LDL 150H - Rads: 04/21/18- Head CT wo: no acute bleed noted 04/21/18- Head/Neck CTA: no thrombus, no stenosis, no aneurysm, mild calcified plaque in carotid siphon 04/21/18- TTE: no cardiac thrombus noted, EF 80-85% 04/21/18- 24 hour telemetry: no afib noted 04/22/18- Head CT: no bleed noted, probable - 04/23/18- Brain MRI wo: Recent infarct right basal ganglia extending through the anterior limb right internal capsule to the posterior margin of the caudate nucleus. 2. Extensive nonspecific hyperintense T2/FLAIR signal abnormalities in the white matter of bilateral cerebral hemispheres. Differential diagnosis includes microvascular ischemic disease, post -infectious/post-inflammatory sequela, atypical demyelinating disease, or migraine-related sequela. Numerous foci of signal voids on susceptibility weighted imaging compatible with hemosiderin deposits most likely from amyloid angiopathy. Multiple small vascular malformations are felt to be less likely as well as posttraumatic sequela considering the distribution. - Assessment: 1. Right sided Stroke causing left sided weakness and speech problems on , status post-TPA: CTA head/neck, TTE, and 24 hour telemetry showed no clear cause of stroke however LDL 150. H1AC 5.9. Treatment plan will be aspirin and modifying stroke risk factors and prolonged personal service workers. - 2. 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 Aspirin for stroke prevention is warranted given benefit exceeds risk in my opinion. - Plan: - Have cardiology place LINQ monitor for prolonged personal service workers prior to hospital discharge - Continue aspirin 325 mg qd (change to aspirin 81 mg qd on hospital discharge) for stroke prevention - blood pressure < 140/90 - LDL goal < 70 (150), recommend beginning statin - H1AC goal < 7.0 (59) - PT/OT/Speech to determine rehab needs - F/U in neurology clinic 1-6 weeks after hospital discharge - No further inpatient neurology w/u needed, neurology will sign off Objective: Vital Signs Temp Pulse Resp BP Pulse Ox 37.0 C 76 16 167/66 H 95 04/24/18 07:33 04/24/18 07:33 04/24/18 07:33 04/24/18 10:23 04/24/18 07:33 Laboratory Results 04/23/18 06:15 04/23/18 04/24/18 04/25/18 05:59 05:59 05:59 Intake Total 1959 1860 Output Total 495 Balance 1464 1860 PT 13.1 SEC (12.0-15.0) 04/21/18 05:45 INR 0.97 (0.83-1.16) 04/21/18 05:45 Allergies/Adverse Reactions: No Known Allergies Allergy (Unverified 04/21/18 06:11)
--- NOTE | 2018-04-24 12:40 | ASMTCMCOM ---
CM Note CM Note Notes: Spoke with Julienne, Inpatient Rehab and she states patient may have [employer]. She is currently calling patient's insurance to clarify. Julienne has approved patient for her program but [employer] may not. Awaiting Julienne's call to see if patient will be insurance approved. The discharge plan remains currently inpatient rehab. CM will follow. Date Signed: 04/24/2018 12:39 PM Electronically Signed By:Kendy Doan LCSW
--- NOTE | 2018-04-24 14:03 | HOSPPROG ---
Hospitalist Progress Note Assessment/Plan: #Right-sided CVA: (basal ganglia) -Speech, PT/OT -Goal BP <140/90. Lisinopril. Added Norvasc. PRN hydral -LDL <70, statin started -no hemorrhagic conversion on repeat CTH -ASA 325mg (81mg at DC) -LINQ recorder to be placed Saturday -Inpt rehab consulted #HTN: ACEI, Norvasc #Hypokalemia: replete #Tachycardia: suspect from pain from catheter. Now resolved #Diet: dysphagia diet #DVT ppx: SCD Disp: transfer to med-surg. Case d/w Dr. Anglin and Blas with Cardiology # Subjective: no acute events Objective: Vital Signs Temp Pulse Resp BP Pulse Ox 37.0 C 89 16 131/81 H 95 04/24/18 07:33 04/24/18 11:38 04/24/18 07:33 04/24/18 11:38 04/24/18 07:33 Laboratory Results 04/23/18 06:15 04/23/18 04/24/18 04/25/18 05:59 05:59 05:59 Intake Total 1959 1860 Output Total 495 Balance 1464 1860 PT 13.1 SEC (12.0-15.0) 04/21/18 05:45 INR 0.97 (0.83-1.16) 04/21/18 05:45 - Time Spent With Patient Time Spent with Patient: greater than 35 minutes Time Spent with Patient: Greater than 35 minutes spent on this patients care, greater than 50% of time spent counseling, educating, and coordinating care regarding the above mentioned plan. - Physical Exam Constitutional: no apparent distress Eyes: PERRL Ears, Nose, Mouth, Throat: moist mucous membranes Cardiovascular: regular rate and rhythym Respiratory: no respiratory distress Gastrointestinal: normoactive bowel sounds Genitourinary: no bladder fullness Musculoskeletal: other (significant left-sided weaknes) Neurologic: facial droop, other (dysarthria) Psychiatric: interacting appropriately ICD10 Worksheet Patient Problems: Problems Problem Status Onset CVA (cerebral vascular accident) Acute
--- NOTE | 2018-04-24 14:52 | ASMTCMCOM ---
CM Note CM Note Notes: Spoke with Julienne Auguste with Inpatient [facility] who states patient has [facility] [employer] and they will not pay for anything other than SNF rehab for a stroke patient. Spoke with patient to let her know [facility] will not pay and she agreed to have referrals sent to SNF rehab programs. ([facility], [facility], [facility]) CM will continue to try and get in touch with her son. Julienne states if a patient's "managed Medicare" is not covering services needed the patient can drop them and change back to standard Medicare. Communicated this to the patient in case she would like to pursue this. Left another message for patient's son Zhang. CM will follow. Date Signed: 04/24/2018 02:52 PM Electronically Signed By:Kendy Doan LCSW
[2018-04-25] MEDS: NS 1,000 ML IV SCH (07:10)
[2018-04-25] MEDS ORDERED: amLODIPine BESYLATE 5 MG TAB PO SCH (09:00)
--- NOTE | 2018-04-25 09:01 | HOSPPROG ---
Hospitalist Progress Note Assessment/Plan: Patient is a 68 y/o female who presented to the ER w aphasia and left sided weakness, first encounter, chart reviewed. #Right-sided CVA: (basal ganglia) -Speech, PT/OT -Goal BP <140/90. Lisinopril. Added Norvasc (dose increased to 7.5 mg). PRN hydralazine -LDL <70, statin started -no hemorrhagic conversion on repeat CTH -ASA 325mg (81mg at DC) -LINQ recorder to be placed Saturday -Inpt rehab consulted #HTN: ACEI, Norvasc (increased Norvasc dose) -still to high #Hypokalemia: replete #Tachycardia -resolved #Diet: dysphagia diet #DVT ppx: SCD Subjective: Calli smiles and nods, says she isn't in pain, she can tell me her backgroung is lithuianian. Objective: Vital Signs Temp Pulse Resp BP Pulse Ox 36.6 C 93 18 188/94 H 92 04/25/18 07:33 04/25/18 07:33 04/25/18 07:33 04/25/18 07:33 04/25/18 07:33 Laboratory Results 04/25/18 04:44 04/23/18 06:15 04/24/18 04/25/18 04/26/18 05:59 05:59 05:59 Intake Total 1860 1165 979 Output Total 200 Balance 1860 965 979 PT 13.1 SEC (12.0-15.0) 04/21/18 05:45 INR 0.97 (0.83-1.16) 04/21/18 05:45 - Physical Exam Constitutional: no apparent distress, appears nourished Eyes: PERRL Ears, Nose, Mouth, Throat: hearing normal Cardiovascular: regular rate and rhythym Respiratory: no respiratory distress Skin: warm Musculoskeletal: generalized weakness (left sided hemipararlysis, can slightly flex left foot. Can not move left arm) Neurologic: facial droop Psychiatric: interacting appropriately ICD10 Worksheet Patient Problems: Problems Problem Status Onset CVA (cerebral vascular accident) Acute
[2018-04-25] MEDS: ACETAMINOPHEN 325 MG TAB PO PRN (09:12)
[2018-04-25] MEDS: ASPIRIN 325 MG TAB PO SCH (09:12)
[2018-04-25] MEDS: LISINOPRIL 20 MG TAB PO SCH (09:13)
[2018-04-25] MEDS: ATORVASTATIN CALCIUM 20 MG TAB PO SCH (09:13)
[2018-04-25] MEDS ORDERED: LIDOCAINE 1% 300 MG/30 ML SDV ONE (09:36)
[2018-04-25] MEDS: amLODIPine BESYLATE 5 MG TAB PO SCH ×2 (11:02→11:13)
[2018-04-25] MEDS ORDERED: BISACODYL 10 MG SUPP PR PRN (11:03)
[2018-04-25] MEDS ORDERED: LACTULOSE 20 GM/30 ML UDCUP PO PRN (11:03)
[2018-04-25] MEDS ORDERED: MAGNESIUM HYDROXIDE 30 ML UDCUP PO PRN (11:03)
--- NOTE | 2018-04-25 12:56 | SUROPNOTE ---
[facility] Operative Report - Surgery LOOP RECORDER IMPLANT Device implanted: Medtronic LINQ SN: [id number] Date of implant: APR 25 2018 Indication for implant: CVA Details of procedure: After consent was obtained, the patient was placed on the table in the usual sterile fashion. The patient was prepped and draped with exposure to the left sternal region. Lidocaine was used for local anesthetic. A small incision was made with a #11 blade. The provided blade was then used to facilitate appropriate width and breath. The rail delivery system was then inserted into the small incision. This rail system was then inverted to allow elevation for the device insertion. The device was implanted without difficulty. The rail delivery system was then removed. The pocket was inspected to ensure all of the device was securely inside the pocket. [place] were used to close the incision. There were no complications appreciated in this procedure. The device was interrogated to ensure adequate wave forms noted. Outpatient follow up with cardiology was scheduled.
[2018-04-25] MEDS ORDERED: LIDOCAINE 1% 300 MG/30 ML SDV SC ONE (14:17)
[2018-04-25] MEDS: hydrALAZINE 25 MG TAB PO PRN (15:52)
--- NOTE | 2018-04-25 15:52 | ASMTCMCOM ---
CM Note CM Note Notes: Referral sent to [facility], spoke with Traci Rivers [phone] who has not authorized any level of care yet. Traci thinks standard Medicare is primary and is unable to verify pt insurance due to her own time constraints. This CM verified pt insurance with and [facility] [employer], [facility] indeed [facility], verification documents sent to Traci via [employer]. Updated pt son Zhang [phone] he is frustrated because he thought [facility] inpatient rehab was approved because Traci said pt had standard Medicare. Informed Zhang of the lack of information Traci had. [place] still reviewing and [facility] will do all we can to get pt into the [facility] inpatient rehab, he is adamant pt needs to be pushed and can handle three hours of therapy. Julienne with [facility] inpatient rehab reports if pt approved there is no ability to admit pt before Saturday. CM to follow. Date Signed: 04/25/2018 03:51 PM Electronically Signed By:KARENA Lew
[2018-04-25] MEDS: SENNOSIDES/DOCUSATE SODIUM TAB PO SCH ×2 (15:54→21:05)
[2018-04-25] MEDS: POLYETHYLENE GLYCOL 3350 17 GM PKT PO SCH (16:17)
[2018-04-25] MEDS ORDERED: FUROSEMIDE 20 MG/2 ML VIAL IVP ONE (16:52)
[2018-04-25] MEDS ORDERED: SENNOSIDES/DOCUSATE SODIUM TAB PO SCH (21:00)
[2018-04-25] MEDS: hydrALAZINE 25 MG TAB PO SCH (21:04)
[2018-04-26] MEDS: hydrALAZINE 25 MG TAB PO SCH ×4 (05:34→20:53)
[2018-04-26] MEDS: SENNOSIDES/DOCUSATE SODIUM TAB PO SCH ×2 (08:48→20:53)
[2018-04-26] MEDS: ATORVASTATIN CALCIUM 20 MG TAB PO SCH (08:49)
[2018-04-26] MEDS: ASPIRIN 325 MG TAB PO SCH (08:49)
[2018-04-26] MEDS: LISINOPRIL 20 MG TAB PO SCH (08:49)
[2018-04-26] MEDS: POLYETHYLENE GLYCOL 3350 17 GM PKT PO SCH (08:49)
--- NOTE | 2018-04-26 09:10 | HOSPPROG ---
Hospitalist Progress Note Assessment/Plan: Patient is a 68 y/o female who presented to the ER w aphasia and left sided weakness,. #Right-sided CVA: (basal ganglia) -Speech, PT/OT -Goal BP <140/90. Lisinopril. Added Norvasc (dose increased to 7.5 mg). PRN hydralazine -LDL <70, statin started -no hemorrhagic conversion on repeat CTH -ASA 325mg (81mg at DC) -LINQ placed Saturday -Inpt rehab consulted #HTN, uncontrolled -blood pressure was extremely high yesterday -Norvasc dose increased, scheduled the Hydralazine instead of prn, Lisinopril, was given a dose of Lasix IV -all w improvement #Hypokalemia: replete #Tachycardia -resolved #Diet: dysphagia diet #DVT ppx: SCD #plan: I discussed her care w the [facility] physician, Alicja ([phone] or [phone]), who wanted to know if Calli could participate in 3 hours of rehab to go to IP. Have asked CM to f/u with PT and OT to see if she can. Calli is very motivated to do rehab, will await further recs. Subjective: Calli has no c/o pain, but points to her has some stomach discomfort. Objective: Vital Signs Temp Pulse Resp BP Pulse Ox 36.8 C 89 17 143/83 H 93 04/26/18 07:57 04/26/18 07:57 04/26/18 07:57 04/26/18 07:57 04/26/18 07:57 Laboratory Results 04/25/18 04:44 04/23/18 06:15 04/25/18 04/26/18 04/27/18 05:59 05:59 05:59 Intake Total 1165 979 Output Total 200 Balance 965 979 PT 13.1 SEC (12.0-15.0) 04/21/18 05:45 INR 0.97 (0.83-1.16) 04/21/18 05:45 - Physical Exam Constitutional: appears nourished Eyes: PERRL Ears, Nose, Mouth, Throat: hearing normal Cardiovascular: regular rate and rhythym, no murmur, rub, or gallop Respiratory: no respiratory distress Skin: warm Musculoskeletal: other (left hemiparalysis, not moving her left foot today) Psychiatric: interacting appropriately, other (can say some words, but mainly aphasic) ICD10 Worksheet Patient Problems: Problems Problem Status Onset CVA (cerebral vascular accident) Acute
--- NOTE | 2018-04-26 15:52 | ASMTCMCOM ---
CM Note CM Note Notes: Hospitalist Oskar spoke with Cy IRAHETA, Cy did not see documentation pt could tolerate three hours of therapy. PT/OT worked with pt again today and documented specifically pt can tolerate three hours/day. Cy IRAHETA re-reviewed and approved inpatient acute rehab, auth is [id number]. Voicemail left for [facility] inpatient rehab admissions with the update and auth number. Pt and son Zhang updated, Zhang reports he can transport pt. CM to follow. D/c plan of care: [facility] inpatient rehab likely Saturday Date Signed: 04/26/2018 03:51 PM Electronically Signed By:KARENA Lew
[2018-04-27] MEDS: hydrALAZINE 25 MG TAB PO SCH ×4 (06:14→20:57)
[2018-04-27] MEDS: ATORVASTATIN CALCIUM 20 MG TAB PO SCH (08:33)
[2018-04-27] MEDS: LISINOPRIL 20 MG TAB PO SCH (08:34)
[2018-04-27] MEDS: SENNOSIDES/DOCUSATE SODIUM TAB PO SCH ×2 (08:34→20:57)
[2018-04-27] MEDS: ASPIRIN 325 MG TAB PO SCH (08:34)
--- NOTE | 2018-04-27 09:06 | CPEKG ---
Test Reason : OPEN Blood Pressure : / mmHG Vent. Rate : 094 BPM Atrial Rate : 094 BPM P-R Int : 118 ms QRS Dur : 088 ms QT Int : 358 ms P-R-T Axes : 066 -44 051 degrees QTc Int : 448 ms Sinus rhythm Inferior infarct, old Confirmed by Jacinto Perez ([id number]) on 04/27/2018 9:05:36 AM Referred By: Confirmed By:Jacinto Perez
[2018-04-27] MEDS: POLYETHYLENE GLYCOL 3350 17 GM PKT PO SCH (12:01)
--- NOTE | 2018-04-27 13:48 | HOSPPROG ---
Hospitalist Progress Note Assessment/Plan: Patient is a 68 y/o female who presented to the ER w aphasia and left sided weakness,. #Right-sided CVA: (basal ganglia) -Speech, PT/OT -Goal BP <140/90. -LDL <70, statin started -no hemorrhagic conversion on repeat CTH -ASA 325mg (81mg at DC) -LINQ placed Saturday -Inpt rehab tomorrow -she is very happy about going to IP rehab, very motivated and nods yes that she can do 3 hours of rehab #HTN, -blood pressure was extremely high yesterday -Norvasc dose increased, scheduled the Hydralazine instead of prn, Lisinopril, was given a dose of Lasix IV -all w improvement, bp stabilized #Hypokalemia: replete #Tachycardia -resolved #Diet: dysphagia diet #DVT ppx: SCD #plan: dc in the morning to rehab. Subjective: Calli shakes her head no that she isn't having pain, Gave me the thumbs up when I told her she is going to IP rehab. Objective: Vital Signs Temp Pulse Resp BP Pulse Ox 36.8 C 87 14 128/73 H 92 04/27/18 08:00 04/27/18 08:00 04/27/18 08:00 04/27/18 12:21 04/27/18 08:33 Laboratory Results 04/25/18 04:44 04/23/18 06:15 04/26/18 04/27/18 04/28/18 05:59 05:59 05:59 Intake Total 979 380 Output Total 1 Balance 979 379 PT 13.1 SEC (12.0-15.0) 04/21/18 05:45 INR 0.97 (0.83-1.16) 04/21/18 05:45 - Physical Exam Constitutional: no apparent distress, appears nourished, not in pain Eyes: PERRL Ears, Nose, Mouth, Throat: hearing normal Cardiovascular: regular rate and rhythym Respiratory: no respiratory distress Gastrointestinal: normoactive bowel sounds, soft, non-tender abdomen Skin: warm Musculoskeletal: other (left sided paralysis, slight foot press in the left foot ) Psychiatric: interacting appropriately, other (alert and mainly aphasic, follows commands and very interactive w thumbs up signs, nods appropriately) ICD10 Worksheet Patient Problems: Problems Problem Status Onset CVA (cerebral vascular accident) Acute
[2018-04-28] MEDS: hydrALAZINE 25 MG TAB PO SCH ×2 (05:33→13:09)
--- NOTE | 2018-04-28 08:49 | HOSPPROG ---
Hospitalist Progress Note Assessment/Plan: Patient is a 68 y/o female who presented to the ER w aphasia and left sided weakness,. #Right-sided CVA: (basal ganglia) -Speech, PT/OT -Goal BP <140/90. -LDL <70, statin started -no hemorrhagic conversion on repeat CTH -ASA 325mg (81mg at DC) -LINQ placed Saturday -Inpt rehab tomorrow -she is very happy about going to IP rehab, very motivated and nods yes that she can do 3 hours of rehab #HTN, -blood pressure was extremely high yesterday -Norvasc dose increased, scheduled the Hydralazine instead of prn, Lisinopril, was given a dose of Lasix IV -all w improvement, bp stabilized #Hypokalemia: replete #Tachycardia -resolved #Diet: dysphagia diet #DVT ppx: SCD #plan: dc to rehab. Subjective: Calli is smiling, nods her head "yes" she is ready to go to rehab Objective: Vital Signs Temp Pulse Resp BP Pulse Ox 36.8 C 83 16 120/65 97 04/28/18 07:24 04/28/18 07:24 04/28/18 07:24 04/28/18 07:24 04/28/18 07:24 Laboratory Results 04/25/18 04:44 04/23/18 06:15 04/27/18 04/28/18 04/29/18 05:59 05:59 05:59 Intake Total 380 650 Output Total 1 Balance 379 650 PT 13.1 SEC (12.0-15.0) 04/21/18 05:45 INR 0.97 (0.83-1.16) 04/21/18 05:45 - Physical Exam Constitutional: no apparent distress, not in pain Eyes: PERRL Ears, Nose, Mouth, Throat: hearing normal Cardiovascular: regular rate and rhythym Respiratory: no respiratory distress Gastrointestinal: normoactive bowel sounds Skin: warm Musculoskeletal: other (left side paralysis) Neurologic: other (alert) Psychiatric: interacting appropriately ICD10 Worksheet Patient Problems: Problems Problem Status Onset CVA (cerebral vascular accident) Acute
--- NOTE | 2018-04-28 09:17 | PDIAF ---
- Diagnosis Diagnosis: right sided CVA, uncontrolled HTN Code Status: Full Code - Medication Management Discharge Medications: electronically signed and located in the Home Medication List. PICC Care - Routine: N/A - Orders Services needed: Physical Therapy, Occupational Therapy, Speech Language Pathologist Diet Recommendation: no restrictions on diet Diet Texture: Dysphagia 1 - Pureed, [place] Thick Liquids, Meds Crushed in Puree Additional Instructions: Calli is on 3 blood pressure medications w good response, may need hydralazine dose decreased over time LINQ monitor is in place, follow up w Cardiology f/u with Dr Bienvenido Dubose - Follow Up Care Current Providers and Referrals: Bienvenido Dubose DO [Medical Doctor] - (follow up 1-6 weeks after hospital discharge) NONE *PRIMARY CARE P,. [Primary Care Provider] - As per Instructions Jacinto Perez MD [Medical Doctor] -
--- NOTE | 2018-04-28 09:38 | GDS ---
DISCHARGE DIAGNOSES: 1. Right-sided cerebrovascular accident (basal ganglia). 2. Uncontrolled hypertension. 3. Hypokalemia. 4. Tachycardia. CONSULTATIONS: 1. Dr. Efren Anglin. 2. Dr. Bienvenido Dubose. 3. Dr. Jacinto Perez. HISTORY: Briefly, the patient is a 68-year-old woman who was brought by EMS to [facility] on April 21 for left-sided weakness and aphasia. CT of the head and neck CTA showed no acute changes . Her symptoms began around 5 a.m. Teleneurology recommended tPA for suspected strokes, was given, and she was placed in the ICU. She continued to have severe aphasia and left-sided weakness. She clark d an echocardiogram performed that showed her EF to be 80% to 85%, without any type of regional wall abnormality. Throughout her stay, she slowly improved. She has been in sinus rhythm. LINQ monitor has been placed, and she will further follow up with Cardiology in the outpatient setting. HOSPITAL COURSE: 1. Acute right-sided cerebrovascular accident, basal ganglia. She has been started on statin therap y. She will be discharged on 81 mg of aspirin. She has a LINQ monitor in place. [facility]. She is very excited about this. 2. Hypertension. Her blood pressure has been difficult to manage. She is on 3 different medication s, including hydralazine, lisinopril and Norvasc. Her blood pressure is stable. 3. Tachycardia, resolved. DISCHARGE CONDITION: Stable. Blood pressure is 120/65, heart rate of 83, respiratory rate of 16, O2 saturation on room air 97%. Temperature is 36.8 Celsius. DISCHARGE MEDICATIONS: Please see the EMR. DISCHARGE INSTRUCTIONS: 1. Further followup with Cardiology for evaluation of the LINQ monitor to rule out any occult atrial fibrillation. 2. Further followup with Dr. Dubose. Greater than 30 minutes discharging and coordinating the patient's care. /[id number]/MODL
[2018-04-28] MEDS: ATORVASTATIN CALCIUM 20 MG TAB PO SCH (11:05)
[2018-04-28] MEDS: LISINOPRIL 20 MG TAB PO SCH (11:07)
[2018-04-28] MEDS: ASPIRIN 325 MG TAB PO SCH (11:08)
[2018-04-28] MEDS: POLYETHYLENE GLYCOL 3350 17 GM PKT PO SCH (11:11)
[2018-04-28] MEDS: SENNOSIDES/DOCUSATE SODIUM TAB PO SCH (11:11)
--- NOTE | 2018-04-28 11:24 | ASMTLACE ---
LACE Length of stay for Answers: 7-13 days current admission Acuity / Level of Answers: Yes Care: Did the patient have an inpatient admission? # of Emergency department Answers: 1-2 visits in the last 6 months Score: 9 Date Signed: 04/28/2018 11:24 AM Electronically Signed By:Trena Stover RN
--- NOTE | 2018-04-28 11:26 | ASMTDCNOTE ---
Case Management Discharge Discharge Order Complete? Answers: Yes Patient to Obtain Answers: Other Notes: [facility] Medications Transportation Arranged Answers: [facility] Stretcher Case Management Transport Answers: Yes Form Complete Faxed Final Orders Answers: Yes Family Notified Answers: Yes Discharge Comments Notes: Patient discharged to [facility]. I spoke cecily [facility] (pt's Cy #[phone]) who confirmed that ambulance transportation will be reiumbursed. Transport arranged cecily Damian at [facility]. Son Zhang notified of plan. KERMIT Diaz to call report. Date Signed: 04/28/2018 11:25 AM Electronically Signed By:Trena Stover RN
[2018-04-28 13:10] VITALS: BP 128/91
--- NOTE | 2018-04-28 16:39 | ASDISCHSUM ---
Discharge Information Plan Status: Medically Cleared to Leave: Discharge Date:04/28/2018 01:18 PM CM D/C Disposition: ADT D/C Disposition:[facility] IP Projected Discharge Date:04/28/2018 11:00 AM Transportation at D/C: Discharge Delay Reason: Follow-Up Date:04/28/2018 11:00 AM Discharge Slot: Final Diagnosis:L sided weakness, Aphasia, CVA Placement Information Referral Type:*Fpc/SNF Referral ID:[id number] Provider Name: Address 1: Phone Number: Address 2: Fax Number: City: Selection Factors: State: Referral Type:Rehabilitation Hospital Referral ID:[id number] Provider Name:[facility] Address 1:[address] [place] [address] Phone Number: Address 2: Fax Number: [facility]:[place] Selection Factors: State:[place] Patient Contact Information Contact Name:VITA Relationship: Address: Home Phone: Work Phone: City: [facility] Phone: [facility] Code: Email: Financial Information Financial Class:Medicare Advantage Plans Primary Plan Desc:[employer] MED[employer]ARE ADV IP Primary Plan Number:[id number] Secondary Plan Desc: Secondary Plan Number: Assessment Information LACE LACE Length of stay for Answers: 7-13 days current admission Acuity / Level of Answers: Yes Care: Did the patient have an inpatient admission? # of Emergency department Answers: 1-2 visits in the last 6 months Score: 9 Date Signed: 04/28/2018 11:24 AM Electronically Signed By:Trena Stover RN [facility] CM Progress Note CM Note CM Note Notes: 68yo female admitted for L sided weakness, Aphasia, CVA. She has a Hx of HTN, HLD. Being tx with TPA. Therapies to eval. Patient lives alone, she reports that she has a son, Reuben Celestin [phone] who lives in [place]. made a call to the # given and a person with a different name answered the phone. Patient also gave the name of a friend Debra Herbert, ([facility]) [phone]. Trying to reach the son. CM to follow. Date Signed: 04/21/2018 06:06 PM Electronically Signed By:Karen Luu LCSW [facility] Progress Note CM Note CM Note Notes: Patient continuing to have L sided weakness and expressive aphasia. Brain MRI pending today or tomorrow. Therapies recommending inpatient rehab since patient was independent prior to admission. We located her son Zhang's #[phone] and have left him a message. Case Management will follow. Date Signed: 04/22/2018 01:29 PM Electronically Signed By:Trena Stover RN [facility] Progress Note CM Note CM Note Notes: Spoke with Julienne, Inpatient Rehab and she states patient may have [employer] Medicare. She is currently calling patient's insurance to clarify. Julienne has approved patient for her program but [facility] may not. Awaiting Julienne's call to see if patient will be insurance approved. The discharge plan remains currently inpatient rehab. CM will follow. Date Signed: 04/24/2018 12:39 PM Electronically Signed By:Kendy Doan LCSW [facility] CM Progress Note CM Note CM Note Notes: Spoke with Julienne Auguste with Inpatient Rehab who states patient has [place] Medicare and they will not pay for anything other than SNF rehab for a stroke patient. Spoke with patient to let her know [place] will not pay and she agreed to have referrals sent to SNF rehab programs. ([facility], [facility], [facility]) CM will continue to try and get in touch with her son. Julienne states if a patient's "managed Medicare" is not covering services needed the patient can drop them and change back to standard Medicare. Communicated this to the patient in case she would like to pursue this. Left another message for patient's son Zhang. CM will follow. Date Signed: 04/24/2018 02:52 PM Electronically Signed By:Kendy Doan LCSW [facility] CM Progress Note CM Note CM Note Notes: Referral sent to [facility], spoke with Traci Rivers [phone] who has not authorized any level of care yet. Traci thinks standard Medicare is primary and is unable to verify pt insurance due to her own time constraints. This CM verified pt insurance with and [facility] [employer], pt does indeed have [facility] primary, verification documents sent to Traci via [employer]. Updated pt son Zhang [phone] he is frustrated because he thought [facility] inpatient rehab was approved because Traci said pt had standard Medicare. Informed Zhang of the lack of information Traci had. [place] still reviewing and [facility] will do all we can to get pt into the [facility] inpatient rehab, he is adamant pt needs to be pushed and can handle three hours of therapy. Julienne with [facility] inpatient rehab reports if pt approved there is no ability to admit pt before Saturday. CM to follow. Date Signed: 04/25/2018 03:51 PM Electronically Signed By:KARENA Lew [facility] CM Progress Note CM Note CM Note Notes: Hospitalist Oskar spoke with Cy IRAHETA, Cy did not see documentation pt could tolerate three hours of therapy. PT/OT worked with pt again today and documented specifically pt can tolerate three hours/day. Cy IRAHETA re-reviewed and approved inpatient acute rehab, auth is [id number]. Voicemail left for [facility] inpatient rehab admissions with the update and auth number. Pt and son Zhang updated, Zhang reports he can transport pt. CM to follow. D/c plan of care: [facility] inpatient rehab likely Saturday Date Signed: 04/26/2018 03:51 PM Electronically Signed By:KARENA Lew Case Management Discharge Plan Note Case Management Discharge Discharge Order Complete? Answers: Yes Patient to Obtain Answers: Other Notes: [facility] Medications Transportation Arranged Answers: NATHANAEL [facility] Case Management Transport Answers: Yes Form Complete Faxed Final Orders Answers: Yes Family Notified Answers: Yes Discharge Comments Notes: Patient discharged to [facility]. I spoke cecily [facility] (pt's [facility] #[phone]) who confirmed that ambulance transportation will be reiumbursed. Transport arranged cecily Damian at [facility]. Son Zhang notified of plan. KERMIT Diaz to call report. Date Signed: 04/28/2018 11:25 AM Electronically Signed By:Trena Stover RN Intervention Information Intervention Type:*IM-Signed Date of Service:04/28/2018 10:36 AM Patient Type:Inpatient Staff Member:Sheri Guzmán Hours: Discipline: Severity: Comment:
== END 2018-04-28 13:18 | DRG 41 ==
LOC: EDUNIT# → F2N 08:09 → F3N 04-24 17:32
PROVIDERS: ADMIT Family Medicine; ATTEND Family Medicine
PROC: 0JH602Z Insertion of Monitoring Device into Chest Subcutaneous Tissue and Fascia, Open Approach (ICD-10-PCS; principal; 2018-04-25)
DX: I63.9 Cerebral infarction, unspecified (principal); I16.1 Hypertensive emergency; R47.01 Aphasia; R53.1 Weakness; R29.715 NIHSS score 15; E78.5 Hyperlipidemia, unspecified; R00.0 Tachycardia, unspecified; R73.9 Hyperglycemia, unspecified; E87.6 Hypokalemia; D75.1 Secondary polycythemia
CPT/HCPCS: 82435-PO; 82565-PO; 82947-PO; 84132-PO; 84295-PO; 84484-PO; 84520-PO; 85014-PO; 92507-GN; 92523-GN; 92526-GN; 92610-GN; 92611-GN; 96365; 97112-GP; 97161-GP; 97166-GO; 97530-GO; 97530-GP; 97535-GO; C1764; G8996-GN-CJ; G8997-GN-CJ; G8998-GN-CJ; G9159-GN-CM; G9160-GN-CJ; J0360; J1940; J2060; J2405; J2997; J3480

== ENCOUNTER 2018-04-28 10:21 | Inpatient (IN) | payer OTHER ==
--- NOTE | 2018-04-28 15:33 | GHP ---
POST ADMISSION PHYSICIAN EVALUATION AND REHABILITATION TREATMENT PLAN. DATE OF ADMISSION: 04/28/2018 TIME OF EVALUATION: 1405. REFERRING FACILITY: [facility]. REFERRING PHYSICIAN: Ciro Anglin MD IMPAIRMENT GROUP: 1.1. DATE OF ONSET: 04/21/2018. CONSULTING PHYSICIANS: She was seen in consultation by Pulmonary Critical Care , Dr. Anglin and Neurology, Dr. Dubose. 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 ETIOLOGIC DIAGNOSIS: Left body involvement (right brain). HISTORY OF PRESENT ILLNESS: This patient came to [facility] on April 21, 2018 with left-sided weakness, aphasia and a left facial droop. She was diagnosed with a right basal ganglia CVA. CT angiogram of head and neck was negative for any occlusions. Blood pressure was 209/148. She received IV tPA thrombolysis. MRI of the brain on 04/23/2018 showed a recent infarct of the basal ganglia extending through the anterior limb of the right internal capsule to the posterior margin of the caudate nucleus. She also had extensive nonspecific hyperintense T2 FLAIR signal abnormalities in the white matter of bilateral cerebral hemispheres and imaging findings suspicious for amyloid angiopathy. Video fluoroscopic swallow study showed moderate oropharyngeal dysphagia with no aspiration and a single episode of trace vestibular penetration with thin liquids. Echocardiogram showed mild concentric LVH, global hypercontractility of the left ventricle, ejection fraction of 80-85%, and trace anterior pericardial effusion versus fat pad. An agitated saline study was negative for intracardiac shunting. She had blood pressure control with initiation and titration of amlodipine and lisinopril and finally addition of scheduled hydralazine. She was otherwise medically stable, participating in therapies and ready for inpatient rehabilitation. OTHER LABS AND STUDIES DURING HER STAY: Her renal function was followed. There was hypokalemia on 04/21/2018. Glucoses were mildly elevated. Otherwise , renal function and electrolytes were overall normal and hypokalemia resolved. Hemoglobin A1c was 5.9. Lipid panel showed elevated cholesterol at 221, an elevated LDL at 150 and an HDL of 50. Hematology showed hemoconcentration initially with hemoglobin of 17.6 and hematocrit of 51.3. Subsequently on 04/25, CBC was completely within normal limits. PT and PTT were normal. PRECAUTIONS: She is a fall risk and she has aspiration precautions. ACTIVE COMORBIDITIES: She has the tier 2 comorbidity of dysphagia. She has the tier 3 comorbidity of hemiparesis. PAST MEDICAL HISTORY: 1. Hypertension. 2. Dyslipidemia. PAST SURGICAL HISTORY: section. PRE-HOSPITAL MEDICATIONS: Apparently she was on no medications. ADMISSION MEDICATIONS: 1. Hydralazine 25 mg p.o. four times daily. 2. Amlodipine 10 mg p.o. daily. 3. Senna/docusate 1-2 tabs p.o. twice daily. 4. Polyethylene glycol 17 g p.o. daily. 5. Lisinopril 40 mg p.o. daily. 6. Atorvastatin 20 mg p.o. daily. 7. Aspirin 81 mg p.o. daily. 8. Acetaminophen 650 mg p.o. q.4 hours p.r.n. ALLERGIES: There are no known drug allergies. PSYCHOSOCIAL HISTORY: Lives alone. She has an adult son who is available to provide some assistance. [place] came to the [place]. Son reports that she is completely fluent in [place]. FAMILY HISTORY: Noncontributory. REVIEW OF SYSTEMS: She feels thirsty. She is aware of left-sided weakness. She denies loss of sensation. Denies cough or dyspnea. She denies nausea, vomiting, constipation or diarrhea and reportedly her last bowel movement was yesterday or today. She denies dysuria or urinary frequency. She denies skin rash or skin breakdown. She denies joint pain or joint swelling. Otherwise, a 10-point review of systems is negative. PHYSICAL EXAMINATION: VITAL SIGNS: Vitals are not yet available in the chart. This afternoon in the hospital her blood pressure was 128/91 and this morning heart rate was 83, respiratory rate was 16, oxygen saturation was 97% on room air. Temperature was 36.8 degrees centigrade. Her weight is 71 kg for a body mass index of 25.3. GENERAL: This is an overweight appearing woman who appears her chronologic age, lying in bed, dressed in street clothes, cooperative and in no acute distress. HEENT: Extraocular movements are intact. Pupils are equal , round and reactive to light. Mucous membranes are dry. Dentition is in good condition. She has a crowded airway, Mallampati class 3-4. NECK: Supple. HEART: There is a regular rate and rhythm with no murmurs, rubs, or gallops. LUNGS: Are clear to auscultation bilaterally. ABDOMEN: Soft, nontender, nondistended with normoactive bowel sounds and no hepatosplenomegaly. EXTREMITIES: There is no cyanosis, clubbing, or edema. Radial and dorsalis pedis pulses are 2+ bilaterally. NEUROLOGIC: She is alert. She is speaking only Chadian, so orientation was not checked, though she appears to understand [place] very well. Cranial nerves 2-12 are grossly intact with normal pupillary function, normal eye movements, normal palate elevation, normal shoulder shrug, normal sensation to the face bilaterally. However she is unable to maintain the left labial seal. Regarding motor strength, she has flaccid paralysis on the left upper and lower extremities except for some movement at the shoulder and at the hip. The right upper and lower extremities have normal strength. Sensation is intact to light touch. There is no extinction to double simultaneous stimulation. Deep tendon reflexes are 2+ bilaterally at the biceps, patellar and Achilles tendons. Plantar reflex is upgoing on the left. There is no rigidity or muscle spasm on the left upper or lower extremities. CURRENT LEVEL OF FUNCTION per the preadmission screen. She was on a dysphagia 1 pureed diet with nectar-thick liquids. Grooming required moderate assistance and was done seated. Bathing was done by sponge bath with moderate assist and voice cues and was also done seated. Dressing required maximal assistance for socks and moderate assistance for the upper body. Toileting required maximal assist of 2 people. Bed mobility required moderate assistance. Transfers were done with maximal assistance or 2 person minimal assist with the use of the Tanesha Stedy. Balance required moderate assist seated. She had poor body awareness and she was noted to push to the left. She had good endurance. She was noted to have mild to moderate expressive aphasia and regarding cognition she was noted to have mild impulsivity and left neglect. On today's exam, there is no change from the preadmission screen. IMPRESSION: This is a 68-year-old right-handed woman who suffered a right basal ganglia cerebrovascular accident with left upper and lower extremity weakness and dysphagia. There may also be an element of left hemineglect. Whether she has aphasia or not is interesting. She has good comprehension in [place]. On today's exam she was only able to express herself in Chadian with translation by her son at the bedside, but aphasia would not be expected given the location of her stroke. She had a very high blood pressure which has been controlled with addition and titration of antihypertensives. She was begun on atorvastatin as well as aspirin. Echocardiogram and cardiac monitoring as well as brain imaging and imaging of cerebrovascular system did not find any source for her stroke and a LINQ monitor was placed during her hospitalization. She was otherwise stable, participating in therapies and appropriate for inpatient rehabilitation. Her goal is to discharge home with the support of her family and supportive services. For a safe discharge, she will need to advance to contact guard to minimal assist level for ADLs and mobility using the least restrictive device. She will need to tolerate the least restrictive diet and have insight into her deficits and be able to use compensatory strategies with supervision. There will be family education. She will have therapy with physical therapy, occupational therapy and speech and language pathology for 60 minutes per day for each discipline on 5-7 days of the week. Her expected duration of stay is 21-28 days. It is anticipated that upon discharge she will continue to benefit from home health services including nursing, [employer], social work, OT and PT. Additionally, she will benefit from a stroke support group. PLAN: 1. CVA 04/21/2018, right basal ganglia with left upper and lower extremity weakness and possible left hemineglect. PT and OT to optimize mobility and activities of daily living towards the contact guard to minimal assist level. 2. Dysphagia and possible aphasia to be assessed and treated per speech and language pathology. Initially she is on a dysphagia 1 diet with nectar-thick liquids. 3. Hypertension. Her blood pressure will be monitored and medications will be adjusted as needed. If possible, hydralazine will be discontinued and medication more within current guidelines and not requiring 4 times a day dosing will be initiated. Will hesitate on initiation of a diuretic until her hydration status is improved. 4. Secondary stroke prevention including dyslipidemia. Will continue atorvastatin and aspirin pending result of LINQ monitor to rule out occult atrial fibrillation. Will initiate fluoxetine to promote neuro recovery. 5. Feeding, electrolytes, and nutrition. There will be a dietary consult. Will check a BMP in the morning to reassess hydration status and will consider IV hydration if she is unable to keep up orally. 6. Pre-diabetes. Dietary consult. 7. Prophylaxis. With left hemiparesis she is at high risk for DVT. Will initiate enoxaparin 40 mg subcutaneous q.day until mobility improves significantly or until approximately 6 weeks out from the stroke. Followup: After her rehabilitation stay, she will follow up with Cardiology for evaluation of the LINQ monitor and she will follow up with neurologist, Dr. Dubose. Left message with [employer] regarding activating the LINQ monitor. /[id number]/MODL MTDD
[2018-04-28] MEDS ORDERED: ACETAMINOPHEN 325 MG TAB PO PRN (16:19)
[2018-04-28] MEDS ORDERED: NS 1,000 ML IV SCH (17:45)
[2018-04-28] MEDS: SENNOSIDES/DOCUSATE SODIUM TAB PO SCH (20:52)
[2018-04-28] MEDS: hydrALAZINE 25 MG TAB PO SCH (20:53)
[2018-04-29] MEDS: hydrALAZINE 25 MG TAB PO SCH ×4 (05:02→19:52)
[2018-04-29 08:06] LABS: PLATELET COUNT 243 10^3/uL (150-400)
[2018-04-29] MEDS: FLUoxetine 10 MG CAP PO SCH (08:25)
[2018-04-29] MEDS: ATORVASTATIN CALCIUM 20 MG TAB PO SCH (08:25)
[2018-04-29] MEDS: LISINOPRIL 20 MG TAB PO SCH (08:25)
[2018-04-29] MEDS: ASPIRIN 81 MG CHEWABLE TAB PO SCH (08:25)
[2018-04-29] MEDS: SENNOSIDES/DOCUSATE SODIUM TAB PO SCH ×2 (08:25→19:51)
[2018-04-29] MEDS: POLYETHYLENE GLYCOL 3350 17 GM PKT PO SCH (09:37)
[2018-04-29] MEDS: ENOXAPARIN 40 MG/0.4 ML SYR SC SCH (09:40)
--- NOTE | 2018-04-29 13:29 | SOAPPROG ---
[facility] Progress Note Assessment/Plan: Assessment: 1. CVA 04/21/2018, right basal ganglia with left upper and lower extremity weakness and possible left hemineglect. PT and OT to optimize mobility and activities of daily living towards the contact guard to minimal assist level. 2. Dysphagia and possible aphasia to be assessed and treated per speech and language pathology. Initially she is on a dysphagia 1 diet with nectar-thick liquids. 3. Hypertension. Her blood pressure will be monitored and medications will be adjusted as needed. If possible, hydralazine will be discontinued and medication more within current guidelines and not requiring 4 times a day dosing will be initiated. Will hesitate on initiation of a diuretic until her hydration status is improved. 4. Secondary stroke prevention including dyslipidemia. Will continue atorvastatin and aspirin pending result of LINQ monitor to rule out occult atrial fibrillation. Will initiate fluoxetine to promote neuro recovery. 5. Feeding, electrolytes, and nutrition. There will be a dietary consult. Will check a BMP in the morning to reassess hydration status and will consider IV hydration if she is unable to keep up orally. 6. Pre-diabetes. Dietary consult. 7. Prophylaxis. With left hemiparesis she is at high risk for DVT. Will initiate enoxaparin 40 mg subcutaneous q.day until mobility improves significantly or until approximately 6 weeks out from the stroke. Followup: After her rehabilitation stay, she will follow up with Cardiology for evaluation of the LINQ monitor and she will follow up with neurologist, Dr. Dubose. Left message with [facility] regarding activating the LINQ monitor. 04/29/18 13:29 Objective: Vital Signs Temp Pulse Resp BP Pulse Ox 36.6 C 78 18 132/88 H 91 L 04/29/18 05:19 04/29/18 05:19 04/29/18 05:19 04/29/18 12:35 04/29/18 05:19 Laboratory Results 04/29/18 05:30 04/29/18 05:30 04/28/18 04/29/18 04/30/18 05:59 05:59 05:59 Intake Total 1250 Output Total 300 Balance 1250 -300 ICD10 Worksheet Patient Problems: Problems Problem Status Onset CVA (cerebral vascular accident) Acute
--- NOTE | 2018-04-29 13:30 | PDOREHIP ---
Admission [facility] - Admission - 3 Day Assessment Period Admission Date/Day 1: 04/28/18 Day 2: 04/29/18 Day 3: 04/30/18 - Active Diagnoses Comorbidities and Co-existing Conditions at Admission: 18588. None of the Above - Skin Conditions Unhealed Pressure Ulcer (1 or more/Stage 1 or >)-Admission: 0. No # Stage 1 Pressure Ulcers-Admission: 0 # Stage 2 Pressure Ulcers-Admission: 0 # Stage 3 Pressure Ulcers-Admission: 0 # Stage 4 Pressure Ulcers-Admission: 0 # Unstageable Pressure Ulcers (Non-remove Dress)-Admission: 0 # Unstageable Pressure Ulcers (Slough/Eschar)-Admission: 0 # Unstageable Pressure Ulcers (Deep Tissue Injury)-Admission: 0
--- NOTE | 2018-04-29 14:16 | SOAPPROG ---
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 * PT and OT to optimize mobility and activities of daily living towards the contact guard to minimal assist level. Dysphagia and possible aphasia to be assessed and treated per speech and language pathology. Initially she is on a dysphagia 1 diet with nectar-thick liquids changed to honey thick on 04/28/2018 due to episode of coughing with dinner.. Hypertension. Her blood pressure will be monitored and medications will be adjusted as needed. If possible, hydralazine will be discontinued and medication more within current guidelines and not requiring 4 times a day dosing will be initiated. Will hesitate on initiation of a diuretic until her hydration status is improved. Secondary stroke prevention including dyslipidemia. Will continue atorvastatin and aspirin pending result of LINQ monitor to rule out occult atrial fibrillation. Will initiate fluoxetine to promote neuro recovery. F/E/N. There will be a dietary consult * Nurse reported coughing on nectar thick liquids the evening of 04/28/2018 and liquid texture was changed to honey thick. With questions regarding her ability to hydrate, she received 1000 cc of normal saline overnight. Feels thirsty and appears dehydrated on BMP 04/29/2017 with BUN of 62. Will hydrate again overnight 04/29 to 04/30/2018. Pre-diabetes. Dietary consult. Prophylaxis. With left hemiparesis she is at high risk for DVT. Initiated enoxaparin 40 mg subcutaneous q.day starting 04/29/2017; continue until mobility improves significantly or until approximately 6 weeks out from the stroke. Followup: After her rehabilitation stay, she will follow up with Cardiology for evaluation of the LINQ monitor and she will follow up with neurologist, Dr. Dubose. Left message with [facility] regarding activating the LINQ monitor. 04/29/18 14:11 Subjective: Slept well. Not in pain. Has improving balance. Still feels thirsty. Objective: Vital Signs Temp Pulse Resp BP Pulse Ox 36.6 C 78 18 132/88 H 91 L 04/29/18 05:19 04/29/18 05:19 04/29/18 05:19 04/29/18 12:35 04/29/18 05:19 Laboratory Results 04/29/18 05:30 04/29/18 05:30 04/28/18 04/29/18 04/30/18 05:59 05:59 05:59 Intake Total 1250 Output Total 300 Balance 1250 -300 Physical Exam - Physical Exam General Appearance: WD/WN, alert, no apparent distress Respiratory: normal breath sounds, No crackles, No rhonchi, No wheezing Cardiac/Chest: regular rate, rhythm, No edema, No gallop, No diastolic murmur, No systolic murmur Skin: normal color, warm/dry Neuro/Psych: alert, normal mood/affect, oriented x 3, motor weakness (Left upper and lower extremities) ICD10 Worksheet Patient Problems: Problems Problem Status Onset CVA (cerebral vascular accident) Acute
[2018-04-29] MEDS ORDERED: NS 1,000 ML IV SCH (16:00)
[2018-04-30] MEDS: hydrALAZINE 25 MG TAB PO SCH ×3 (05:48→15:59)
[2018-04-30] MEDS: ENOXAPARIN 40 MG/0.4 ML SYR SC SCH (07:59)
[2018-04-30] MEDS: ONDANSETRON DISINTEGRATING 4 MG TAB PO PRN (07:59)
[2018-04-30] MEDS: POLYETHYLENE GLYCOL 3350 17 GM PKT PO SCH (08:41)
[2018-04-30] MEDS: SENNOSIDES/DOCUSATE SODIUM TAB PO SCH (08:41)
[2018-04-30] MEDS: FLUoxetine 10 MG CAP PO SCH (08:42)
[2018-04-30] MEDS: ASPIRIN 81 MG CHEWABLE TAB PO SCH (08:44)
[2018-04-30] MEDS: LISINOPRIL 20 MG TAB PO SCH (08:44)
[2018-04-30] MEDS: ATORVASTATIN CALCIUM 20 MG TAB PO SCH (08:44)
--- NOTE | 2018-04-30 09:54 | SOAPPROG ---
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 * Initial functional independence measure is 32 on 04/30/2018. Moderate assistance for bed mobility. Transfers with maximal assistance. Impaired seated balance. Impulsive. Grooming and hygiene are done seated with minimal to standby assist. Upper body and lower body dressing require maximal assist. Bath transfer was done with 2 persons. Bathing required maximal assist. * Continue PT and OT to optimize mobility and activities of daily living towards the contact guard to minimal assist level. Dysphagia and possible aphasia. * Dysphagia 1 diet with honey thickened liquids. Has oral discoordination and a poor labial seal. She needs to be upright with meals due to risk for aspiration otherwise. * She has dysarthria as well as DIS fluency and 30% intelligible bili T. There is also word-finding and naming deficits and decreased memory orientation and problem solving. 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 * Blood pressure often above target. * On maximal dose amlodipine 10 mg and lisinopril 40 mg daily. Taking hydralazine 25 mg 4 times a day. Would like to discontinue hydralazine and initiate diuretic but she needs to have adequate fluid intake, which is challenging on honey thick liquids. * Discontinue hydralazine and initiate metoprolol at 25 mg twice daily starting 04/30/2018. Secondary stroke prevention including dyslipidemia. Will continue atorvastatin and aspirin pending result of LINQ monitor to rule out occult atrial fibrillation. Discussed with [facility] device commissions manager, 04/30/2017. Link monitor is operation all and is updating daily. Initiated fluoxetine to promote neuro recovery at 10 mg q.day on 04/29/2017.. F/E/N. There will be a dietary consult * Nurse reported coughing on nectar thick liquids the evening of 04/28/2018 and liquid texture was changed to honey thick. With questions regarding her ability to hydrate, she received 1000 cc of normal saline overnight. Feels thirsty and appears dehydrated on BMP 04/29/2017 with BUN of 62. Will hydrate again overnight 04/29 to 04/30/2018. * Recheck [facility] 05/01/2018. Pre-diabetes. Dietary consult. Prophylaxis. With left hemiparesis she is at high risk for DVT. Initiated enoxaparin 40 mg subcutaneous q.day starting 04/29/2017; continue until mobility improves significantly or until approximately 6 weeks out from the stroke. DISPOSITION: Attended staffing, 15 min. Discussed with case management, dietitian, nursing, PT, OT, BOTTOM BLEACHER. Has been living alone. Has assistance from a local son. Expect 4-6 weeks length of stay with a tentative discharge date of . Will staff again on 05/05/2018, with [place] correctional counselor/case manager. If she is not progressing, she may discharge to [facility] facility sooner. Followup: After her rehabilitation stay, she will follow up with Cardiology for evaluation of the LINQ monitor and she will follow up with neurologist, Dr. Dubose. 04/30/18 11:35 Subjective: Dislikes crushed blood pressure pills. Stomach felt queasy this morning. Was given ondansetron x1. Objective: Vital Signs Temp Pulse Resp BP Pulse Ox 36.7 C 82 16 139/82 H 92 04/30/18 06:14 04/30/18 06:14 04/30/18 06:14 04/30/18 08:44 04/30/18 06:14 Laboratory Results 04/29/18 05:30 04/29/18 05:30 04/29/18 04/30/18 05/01/18 05:59 05:59 05:59 Intake Total 8577 242 3550 Output Total 850 400 Balance 1250 -250 800 - Time Spent With Patient Time Spent With Patient: Greater than 35 min floor time today, including more than 50% of time in coordination of care during staffing, and counseling patient. Physical Exam - Physical Exam General Appearance: WD/WN, alert, no apparent distress EENT: other (Moist mucous membranes) Respiratory: normal breath sounds, No crackles, No rhonchi, No wheezing Cardiac/Chest: regular rate, rhythm, JVD (2 cm above clavicle), No edema, No diastolic murmur, No systolic murmur Skin: normal color, warm/dry Neuro/Psych: alert, normal mood/affect, aphasia (Speaking mostly Kazakh. Has written two Kazakh sentences the meetings of which are difficult to understand. ), motor weakness (Left upper and lower extremities), speech abnormalities ICD10 Worksheet Patient Problems: Problems Problem Status Onset CVA (cerebral vascular accident) Acute
[2018-04-30] MEDS ORDERED: ACETAMINOPHEN 650 MG/20.3 ML UDCUP PO PRN (12:07)
[2018-04-30] MEDS: SENNOSIDES 17.6 MG/10 ML UDL - IF LIQUID ORDERED PO SCH (20:20)
[2018-04-30] MEDS: METOPROLOL TARTRATE 25 MG TAB PO SCH (20:21)
[2018-05-01] MEDS: ENOXAPARIN 40 MG/0.4 ML SYR SC SCH (07:16)
[2018-05-01] MEDS: POLYETHYLENE GLYCOL 3350 17 GM PKT PO SCH (08:32)
[2018-05-01] MEDS: LISINOPRIL 20 MG TAB PO SCH (08:33)
[2018-05-01] MEDS: FLUOXETINE 4 MG/ML 30 ML BOTTLE PO SCH (08:33)
[2018-05-01] MEDS: ASPIRIN 81 MG CHEWABLE TAB PO SCH (08:33)
[2018-05-01] MEDS: ATORVASTATIN CALCIUM 20 MG TAB PO SCH (08:33)
[2018-05-01] MEDS: SENNOSIDES 17.6 MG/10 ML UDL - IF LIQUID ORDERED PO SCH ×2 (08:34→20:09)
[2018-05-01] MEDS: METOPROLOL TARTRATE 25 MG TAB PO SCH ×2 (08:34→20:09)
--- NOTE | 2018-05-01 08:44 | SOAPPROG ---
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 Today's update: Blood pressure slightly high, fluid status appears improved based on reports, BUN has come down from 62 to 30 with a stable creatinine of 0.7. Continue to monitor fluid status and encourage p.o. Fluids, acknowledging that honey thick liquids makes hydration difficult.. Epigastric pain improved with bowel movement, also adding Maalox for symptom management. Low suspicion for cardiac etiology at this point, but will obtain a ECG and troponin given her high number of cardiac risk factors. Fluoxetine has already been started for neural recovery, patient understands and speaks French, has preferred Z[place]ian after stroke. Portions of the discussion today were in French, in- depth discussion with a [place] renal medicine specialist. A total of 35 min was spent on the floor in the care of the patient, the majority of which was spent in counseling coordination of care regarding summary of her medical issues, counseling regarding internal locus of control and helping him power her in her health care. Additional issues reviewed without change today include hypertension management as metoprolol was just changed, prediabetes, prophylaxis. 05/01/18 08:37 05/01/18 08:46 Subjective: Chief complaint: Epigastric discomfort, frustration No acute events overnight. Patient denies any new shortness of breath or chest pain, no new numbness, tingling, or weakness. She endorses some ongoing epigastric pain that started sometime between the stroke and current day, not new for her. She has had some previous nausea. Also, she endorses that she does not feel in control of her health care, is not sure what's happening to her. Objective: Vital Signs Temp Pulse Resp BP Pulse Ox 36.9 C 79 16 141/83 H 92 05/01/18 06:06 05/01/18 08:28 05/01/18 06:06 05/01/18 08:28 05/01/18 08:28 Laboratory Results 04/29/18 05:30 05/01/18 06:00 04/30/18 05/01/18 05/02/18 05:59 05:59 05:59 Intake Total 600 2518 Output Total 850 1250 Balance -250 1268 Physical Exam - Physical Exam General Appearance: WD/WN, alert, no apparent distress EENT: No scleral icterus (R), No scleral icterus (L) Cardiac/Chest: normal peripheral pulses, regular rate, rhythm, No edema Abdomen: non-tender, soft, No organomegaly, No pulsatile mass Skin: normal color, warm/dry, No cyanosis, No diaphoresis Extremities: No pedal edema, No swelling Neuro/Psych: alert, other (Dense left-sided hemiparesis, preserved sensory function.), No normal mood/affect (Has a somewhat depressed appearing affect) ICD10 Worksheet Patient Problems: Problems Problem Status Onset CVA (cerebral vascular accident) Acute
[2018-05-01] MEDS: MAG HYDROX/AL HYDROX/SIMETH 30 ML UDCUP PO PRN (12:39)
--- NOTE | 2018-05-01 16:15 | CPEKG ---
Test Reason : OPEN Blood Pressure : / mmHG Vent. Rate : 061 BPM Atrial Rate : 061 BPM P-R Int : 128 ms QRS Dur : 090 ms QT Int : 420 ms P-R-T Axes : 037 -24 097 degrees QTc Int : 423 ms SINUS RHYTHM PROBABLE LVH WITH SECONDARY REPOL ABNRM Confirmed by Kam Escamilla ([id number]) on 05/01/2018 4:14:55 PM Referred By: Confirmed By:Kam Escamilla
[2018-05-02] MEDS: ENOXAPARIN 40 MG/0.4 ML SYR SC SCH (07:48)
[2018-05-02] MEDS: POLYETHYLENE GLYCOL 3350 17 GM PKT PO SCH (09:06)
[2018-05-02] MEDS: SENNOSIDES 17.6 MG/10 ML UDL - IF LIQUID ORDERED PO SCH ×2 (09:06→20:11)
[2018-05-02] MEDS: ASPIRIN 81 MG CHEWABLE TAB PO SCH (09:13)
[2018-05-02] MEDS: ATORVASTATIN CALCIUM 20 MG TAB PO SCH (09:15)
[2018-05-02] MEDS: FLUOXETINE 4 MG/ML 30 ML BOTTLE PO SCH (09:19)
[2018-05-02] MEDS: LISINOPRIL 20 MG TAB PO SCH (09:21)
[2018-05-02] MEDS: METOPROLOL TARTRATE 25 MG TAB PO SCH ×2 (09:25→20:11)
--- NOTE | 2018-05-02 10:00 | SOAPPROG ---
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 * Initial functional independence measure is 32 on 04/30/2018. Moderate assistance for bed mobility. Transfers with maximal assistance. Impaired seated balance. Impulsive. Grooming and hygiene are done seated with minimal to standby assist. Upper body and lower body dressing require maximal assist. Bath transfer was done with 2 persons. Bathing required maximal assist. * Improving ability to squat-pivot transfer noted on 05/01/2018. * Continue PT and OT to optimize mobility and activities of daily living towards the contact guard to minimal assist level. Dysphagia and possible aphasia. * Dysphagia 1 diet with honey thickened liquids. Has oral dyscoordination and a poor labial seal. She needs to be upright with meals due to risk for aspiration otherwise. * She has dysarthria as well as dysfluency and 30% intelligible. There are also word-finding and naming deficits and decreased memory, orientation, and problem solving. * Continue INSIDE UPHOLSTERER Hypertension. * Blood pressure often above target. * On maximal dose amlodipine 10 mg and lisinopril 40 mg daily. Taking hydralazine 25 mg 4 times a day. Would like to discontinue hydralazine and initiate diuretic but she needs to have adequate fluid intake, which is challenging on honey thick liquids. * Discontinue hydralazine and initiate metoprolol at 25 mg twice daily starting 04/30/2018. Increased to 50 mg twice daily starting 05/02/2018. Secondary stroke prevention including dyslipidemia. Will continue atorvastatin and aspirin pending result of LINQ monitor to rule out occult atrial fibrillation. Discussed with [facility] device resident services manager, 04/30/2017. Link monitor is operation all and is updating daily. Initiated fluoxetine to promote neuro recovery at 10 mg q.day on 04/29/2017.. F/E/N. There will be a dietary consult * Nurse reported coughing on nectar thick liquids the evening of 04/28/2018 and liquid texture was changed to honey thick. With questions regarding her ability to hydrate, she received 1000 cc of normal saline overnight. Feels thirsty and appears dehydrated on BMP 04/29/2017 with BUN of 62. Will hydrate again overnight 04/29 to 04/30/2018. * Hydration improved on [facility] 05/01/2018, with BUN of 31 and creatinine of 0.1. Pre-diabetes. Dietary consult. Prophylaxis. With left hemiparesis she is at high risk for DVT. Initiated enoxaparin 40 mg subcutaneous q.day starting 04/29/2017; continue until mobility improves significantly or until approximately 6 weeks out from the stroke. DISPOSITION: Has been living alone. Has assistance from a local son. Expect 4 -6 weeks length of stay with a tentative discharge date of 06/09/2018. Will staff again on 05/05/2018, with [place] counseling case manager. If she is not progressing, she may discharge to senior care facility sooner. Followup: After her rehabilitation stay, she will follow up with Cardiology for evaluation of the LINQ monitor and she will follow up with neurologist, Dr. Dubose. 05/02/18 10:49 Subjective: No complaints. Sleeping well. Not in pain. Feels thirsty. Objective: Vital Signs Temp Pulse Resp BP Pulse Ox 36.9 C 86 16 141/78 H 95 05/02/18 05:10 05/02/18 09:00 05/02/18 05:10 05/02/18 09:00 05/02/18 09:00 Laboratory Results 04/29/18 05:30 05/01/18 06:00 05/01/18 05/02/18 05/03/18 05:59 05:59 05:59 Intake Total 2518 650 Output Total 1250 420 Balance 1268 230 Physical Exam - Physical Exam General Appearance: WD/WN, alert, no apparent distress Respiratory: normal breath sounds, No crackles, No rhonchi, No wheezing Cardiac/Chest: regular rate, rhythm, No edema, No JVD, No diastolic murmur, No systolic murmur Skin: normal color, warm/dry Neuro/Psych: alert, normal mood/affect, motor weakness (Left upper and lower extremities), speech abnormalities (Dysarthria, largely unintelligible.) ICD10 Worksheet Patient Problems: Problems Problem Status Onset CVA (cerebral vascular accident) Acute
[2018-05-03] MEDS: METOPROLOL TARTRATE 25 MG TAB PO SCH ×2 (08:40→20:39)
[2018-05-03] MEDS: LISINOPRIL 20 MG TAB PO SCH (08:45)
[2018-05-03] MEDS: ASPIRIN 81 MG CHEWABLE TAB PO SCH (08:46)
[2018-05-03] MEDS: ENOXAPARIN 40 MG/0.4 ML SYR SC SCH (08:46)
[2018-05-03] MEDS: ATORVASTATIN CALCIUM 20 MG TAB PO SCH (08:47)
[2018-05-03] MEDS: SENNOSIDES 17.6 MG/10 ML UDL - IF LIQUID ORDERED PO SCH (08:48)
[2018-05-03] MEDS ORDERED: ACETAMINOPHEN 325 MG TAB PO PRN (10:38)
--- NOTE | 2018-05-03 15:08 | HOSPPROG ---
Hospitalist Progress Note Assessment/Plan: CVA 04/21/2018, right basal ganglia with left upper and lower extremity weakness and possible left hemineglect. * Initial functional independence measure is 32 on 04/30/2018. Moderate assistance for bed mobility. Transfers with maximal assistance. Impaired seated balance. Impulsive. Grooming and hygiene are done seated with minimal to standby assist. Upper body and lower body dressing require maximal assist. Bath transfer was done with 2 persons. Bathing required maximal assist. * Improving ability to squat-pivot transfer noted on 05/01/2018. * Continue PT and OT to optimize mobility and activities of daily living towards the contact guard to minimal assist level. Dysphagia and possible aphasia. * Dysphagia 1 diet with honey thickened liquids. Has oral dyscoordination and a poor labial seal. She needs to be upright with meals due to risk for aspiration otherwise. * She has dysarthria as well as dysfluency and 30% intelligible. There are also word-finding and naming deficits and decreased memory, orientation, and problem solving. 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 * Blood pressure often above target. * On maximal dose amlodipine 10 mg and lisinopril 40 mg daily. Taking hydralazine 25 mg 4 times a day. Would like to discontinue hydralazine and initiate diuretic but she needs to have adequate fluid intake, which is challenging on honey thick liquids. * Discontinue hydralazine and initiate metoprolol at 25 mg twice daily starting 04/30/2018. Increased to 50 mg twice daily starting 05/02/2018. * BLOOD PRESSURE MUCH BETTER WITH CHANGES Secondary stroke prevention including dyslipidemia. Will continue atorvastatin and aspirin pending result of LINQ monitor to rule out occult atrial fibrillation. Discussed with [facility] device senior product marketing manager, 04/30/2017. Link monitor is operation all and is updating daily. Initiated fluoxetine to promote neuro recovery at 10 mg q.day on 04/29/2017.. F/E/N. There will be a dietary consult * Nurse reported coughing on nectar thick liquids the evening of 04/28/2018 and liquid texture was changed to honey thick. With questions regarding her ability to hydrate, she received 1000 cc of normal saline overnight. Feels thirsty and appears dehydrated on BMP 04/29/2017 with BUN of 62. Will hydrate again overnight 04/29 to 04/30/2018. * Hydration improved on BMP 05/01/2018, with BUN of 31 and creatinine of 0.1. Pre-diabetes. Dietary consult. Prophylaxis. With left hemiparesis she is at high risk for DVT. Initiated enoxaparin 40 mg subcutaneous q.day starting 04/29/2017; continue until mobility improves significantly or until approximately 6 weeks out from the stroke. Subjective: some abdominal pain but difficult to get more information. RN confirms she may be constipated Objective: Vital Signs Temp Pulse Resp BP Pulse Ox 36.6 C 81 16 114/70 90 L 05/03/18 07:36 05/03/18 08:40 05/03/18 07:36 05/03/18 08:46 05/03/18 07:36 Laboratory Results 04/29/18 05:30 05/01/18 06:00 05/02/18 05/03/18 05/04/18 05:59 05:59 05:59 Intake Total 650 388 Output Total 420 300 Balance 230 88 - Physical Exam Constitutional: no apparent distress, appears nourished, not in pain Eyes: anicteric sclera, EOMI Respiratory: no respiratory distress Gastrointestinal: normoactive bowel sounds, tenderness (very mild right tenderness) Skin: warm Neurologic: AAOx3 ICD10 Worksheet Patient Problems: Problems Problem Status Onset CVA (cerebral vascular accident) Acute
[2018-05-03] MEDS ORDERED: MAGNESIUM HYDROXIDE 30 ML UDCUP PO PRN (15:09)
[2018-05-03] MEDS: BISACODYL 10 MG SUPP PR PRN (15:36)
[2018-05-03] MEDS: FLUoxetine 10 MG CAP PO SCH (15:41)
[2018-05-03] MEDS: POLYETHYLENE GLYCOL 3350 17 GM PKT PO SCH (15:52)
[2018-05-03] MEDS: FLUOXETINE 4 MG/ML 30 ML BOTTLE PO SCH (16:54)
[2018-05-03] MEDS: SENNOSIDES 1 TAB PO SCH (20:39)
[2018-05-04] MEDS: POLYETHYLENE GLYCOL 3350 17 GM PKT PO SCH (08:42)
[2018-05-04] MEDS: SENNOSIDES 1 TAB PO SCH ×2 (08:42→21:54)
[2018-05-04] MEDS: ASPIRIN 81 MG CHEWABLE TAB PO SCH (08:42)
[2018-05-04] MEDS: ATORVASTATIN CALCIUM 20 MG TAB PO SCH (08:42)
[2018-05-04] MEDS: FLUoxetine 10 MG CAP PO SCH (08:42)
[2018-05-04] MEDS: METOPROLOL TARTRATE 25 MG TAB PO SCH ×2 (08:42→21:53)
[2018-05-04] MEDS: ENOXAPARIN 40 MG/0.4 ML SYR SC SCH (08:43)
[2018-05-04] MEDS: LISINOPRIL 20 MG TAB PO SCH (08:43)
--- NOTE | 2018-05-04 11:25 | HOSPPROG ---
Hospitalist Progress Note Assessment/Plan: CVA 04/21/2018, right basal ganglia with left upper and lower extremity weakness and possible left hemineglect. * Initial functional independence measure is 32 on 04/30/2018. Moderate assistance for bed mobility. Transfers with maximal assistance. Impaired seated balance. Impulsive. Grooming and hygiene are done seated with minimal to standby assist. Upper body and lower body dressing require maximal assist. Bath transfer was done with 2 persons. Bathing required maximal assist. * Improving ability to squat-pivot transfer noted on 05/01/2018. * Continue PT and OT to optimize mobility and activities of daily living towards the contact guard to minimal assist level. Dysphagia and possible aphasia. * Dysphagia 1 diet with honey thickened liquids. Has oral dyscoordination and a poor labial seal. She needs to be upright with meals due to risk for aspiration otherwise. * She has dysarthria as well as dysfluency and 30% intelligible. There are also word-finding and naming deficits and decreased memory, orientation, and problem solving. * Continue COM WRITER Abdominal discomfort * better with giving whole pills Hypertension. * Blood pressure often above target. * On maximal dose amlodipine 10 mg and lisinopril 40 mg daily. Taking hydralazine 25 mg 4 times a day. Would like to discontinue hydralazine and initiate diuretic but she needs to have adequate fluid intake, which is challenging on honey thick liquids. * Discontinue hydralazine and initiate metoprolol at 25 mg twice daily starting 04/30/2018. Increased to 50 mg twice daily starting 05/02/2018. * BLOOD PRESSURE MUCH BETTER WITH CHANGES Secondary stroke prevention including dyslipidemia. Will continue atorvastatin and aspirin pending result of LINQ monitor to rule out occult atrial fibrillation. Discussed with [facility] device bus and sys integration senior manager, 04/30/2017. Link monitor is operation all and is updating daily. Initiated fluoxetine to promote neuro recovery at 10 mg q.day on 04/29/2017.. F/E/N. There will be a dietary consult * Nurse reported coughing on nectar thick liquids the evening of 04/28/2018 and liquid texture was changed to honey thick. With questions regarding her ability to hydrate, she received 1000 cc of normal saline overnight. Feels thirsty and appears dehydrated on BMP 04/29/2017 with BUN of 62. Will hydrate again overnight 04/29 to 04/30/2018. * Hydration improved on BMP 05/01/2018, with BUN of 31 and creatinine of 0.1. Pre-diabetes. Dietary consult. Prophylaxis. With left hemiparesis she is at high risk for DVT. Initiated enoxaparin 40 mg subcutaneous q.day starting 04/29/2017; continue until mobility improves significantly or until approximately 6 weeks out from the stroke. Subjective: abdominl discomfort better. may have been crushed pills Objective: Vital Signs Temp Pulse Resp BP Pulse Ox 36.6 C 70 16 133/85 H 92 05/04/18 08:00 05/04/18 08:00 05/04/18 08:00 05/04/18 08:00 05/04/18 08:00 Laboratory Results 04/29/18 05:30 05/01/18 06:00 05/03/18 05/04/18 05/05/18 05:59 05:59 05:59 Intake Total 388 710 240 Output Total 300 Balance 88 710 240 - Physical Exam Constitutional: no apparent distress, appears nourished, not in pain Eyes: anicteric sclera, EOMI Ears, Nose, Mouth, Throat: moist mucous membranes Cardiovascular: regular rate and rhythym Respiratory: no respiratory distress Skin: warm Neurologic: AAOx3 Psychiatric: interacting appropriately ICD10 Worksheet Patient Problems: Problems Problem Status Onset CVA (cerebral vascular accident) Acute
[2018-05-05] MEDS: POLYETHYLENE GLYCOL 3350 17 GM PKT PO SCH (08:42)
[2018-05-05] MEDS: METOPROLOL TARTRATE 25 MG TAB PO SCH ×2 (08:47→20:13)
[2018-05-05] MEDS: ATORVASTATIN CALCIUM 20 MG TAB PO SCH (08:50)
[2018-05-05] MEDS: FLUoxetine 10 MG CAP PO SCH (08:51)
[2018-05-05] MEDS: LISINOPRIL 20 MG TAB PO SCH (08:53)
[2018-05-05] MEDS: SENNOSIDES 1 TAB PO SCH ×2 (08:57→20:14)
[2018-05-05] MEDS: ASPIRIN 81 MG CHEWABLE TAB PO SCH (08:59)
[2018-05-05] MEDS: ENOXAPARIN 40 MG/0.4 ML SYR SC SCH (10:45)
[2018-05-05] MEDS: ONDANSETRON DISINTEGRATING 4 MG TAB PO PRN (11:36)
--- NOTE | 2018-05-05 11:54 | SOAPPROG ---
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 * Initial functional independence measure is 32 on 04/30/2018: Increased to 36 as of 05/05/2018. Moderate assist for bed mobility and squat pivot transfer. This to the left. Emerging strength in left lower extremity but decreased motor planning. Minimal assist for grooming and hygiene, maximal assist for upper body and lower body dressing. She has left upper extremity proprioception but no movement yet. * Improving ability to squat-pivot transfer noted on 05/01/2018. * Continue PT and OT to optimize mobility and activities of daily living towards the contact guard to minimal assist level. Dysphagia and possible aphasia. * Dysphagia 1 diet with honey thickened liquids. Has oral dyscoordination and a poor labial seal. She needs to be upright with meals due to risk for aspiration otherwise. She did not tolerate electronic stimulation to increase oropharyngeal muscle strength. * She has dysarthria as well as dysfluency and 30% intelligible. There are also word-finding and naming deficits and decreased memory, orientation, and problem solving. * Continue SMOKE JUMPER Hypertension. * Adequate control * Continue amlodipine 10 mg daily, lisinopril 40 mg daily and metoprolol 50 mg twice. Secondary stroke prevention including dyslipidemia. Will continue atorvastatin and aspirin pending result of LINQ monitor to rule out occult atrial fibrillation. Discussed with [facility] device manager hair, 04/30/2017. Link monitor is operation all and is updating daily. Initiated fluoxetine to promote neuro recovery at 10 mg q.day on 04/29/2017.. F/E/N. There will be a dietary consult * Nurse reported coughing on nectar thick liquids the evening of 04/28/2018 and liquid texture was changed to honey thick. With questions regarding her ability to hydrate, she received 1000 cc of normal saline overnight. Feels thirsty and appears dehydrated on BMP 04/29/2017 with BUN of 62. Will hydrate again overnight 04/29 to 04/30/2018. * Hydration improved on [facility] 05/01/2018, with BUN of 31 and creatinine of 0.7. Continue to encourage oral fluid intake. Pre-diabetes. Dietary consult. Prophylaxis. With left hemiparesis she is at high risk for DVT. Initiated enoxaparin 40 mg subcutaneous q.day starting 04/29/2017; continue until mobility improves significantly or until approximately 6 weeks out from the stroke. DISPOSITION: Attended staffing, 15 min. Discussed with case management, dietitian, nursing, PT, OT, SMOKE JUMPER, [place] case preparer and liner Has been living alone. Has assistance from a local son. Will likely need 6 weeks or more of therapy. Reassess in 1 week, 05/12/2017. If poor progress, may discharge to SNF. Followup: After her rehabilitation stay, she will follow up with Cardiology for evaluation of the LINQ monitor and she will follow up with neurologist, Dr. Dubose. 05/05/18 11:44 Subjective: Complains of nausea. Bowel movement recorded yesterday. No fevers or chills, no abdominal pain, no cough or dyspnea. Objective: Vital Signs Temp Pulse Resp BP Pulse Ox 36.8 C 67 16 146/80 H 91 L 05/05/18 07:09 05/05/18 07:09 05/05/18 07:09 05/05/18 07:09 05/05/18 07:09 Laboratory Results 04/29/18 05:30 05/01/18 06:00 05/04/18 05/05/18 05/06/18 05:59 05:59 05:59 Intake Total 710 860 236 Balance 710 860 236 - Time Spent With Patient Time Spent With Patient: Greater than 35 min floor time today, including more than 50% of time in coordination of care during staffing meeting, and counseling patient. Physical Exam - Physical Exam General Appearance: WD/WN, alert, no apparent distress Respiratory: normal breath sounds, No crackles, No rhonchi, No wheezing Cardiac/Chest: regular rate, rhythm, No edema, No diastolic murmur, No systolic murmur Abdomen: normal bowel sounds, non-tender, soft, No distended Skin: normal color, warm/dry, other (Left chest incision over LINQ monitor clean dry and intact, 3 rocky present.) Neuro/Psych: alert, normal mood/affect, aphasia, motor weakness (Left upper and lower extremities) ICD10 Worksheet Patient Problems: Problems Problem Status Onset CVA (cerebral vascular accident) Acute
[2018-05-06] MEDS: POLYETHYLENE GLYCOL 3350 17 GM PKT PO SCH (08:51)
[2018-05-06] MEDS: LISINOPRIL 20 MG TAB PO SCH (08:51)
[2018-05-06] MEDS: FLUoxetine 10 MG CAP PO SCH (08:51)
[2018-05-06] MEDS: SENNOSIDES 1 TAB PO SCH ×2 (08:51→20:16)
[2018-05-06] MEDS: ASPIRIN 81 MG CHEWABLE TAB PO SCH (08:51)
[2018-05-06] MEDS: ENOXAPARIN 40 MG/0.4 ML SYR SC SCH (08:51)
[2018-05-06] MEDS: ATORVASTATIN CALCIUM 20 MG TAB PO SCH (08:51)
[2018-05-06] MEDS: METOPROLOL TARTRATE 25 MG TAB PO SCH ×2 (08:51→20:16)
--- NOTE | 2018-05-06 09:13 | SOAPPROG ---
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 Today's update: Making slow progress in rehabilitation. Hypertension is reasonably controlled on 3 medications, continue to monitor and increase gradually as necessary. Continuing fluoxetine for neurological recovery, consider increasing to 20 mg daily in coming days. Placed order for left AFO after consulting with PT A total of 25 min was spent on the floor in the care of the patient, the majority of which was spent in counseling coordination of care regarding rehabilitation progress and symptom management. Additional issues reviewed without change today include prediabetes, prophylaxis. 05/01/18 08:37 05/01/18 08:46 05/06/18 09:09 05/06/18 12:18 Subjective: Chief complaint: Rehab progress No acute events overnight. Patient denies any new shortness of breath or chest pain, no new numbness, tingling, or weakness. Patient feels that she is making slow progress in rehab in wishes that she is being challenged more, this is to be addressed with staff. Otherwise she has improved spirits. Objective: Vital Signs Temp Pulse Resp BP Pulse Ox 36.7 C 63 18 132/82 H 91 L 05/06/18 06:41 05/06/18 06:41 05/06/18 06:41 05/06/18 06:41 05/06/18 06:41 Laboratory Results 04/29/18 05:30 05/01/18 06:00 05/05/18 05/06/18 05/07/18 05:59 05:59 05:59 Intake Total 860 595 Output Total 500 Balance 860 95 Physical Exam - Physical Exam General Appearance: WD/WN, alert, no apparent distress, other (Sitting at the sink at the wheelchair level doing grooming independently) EENT: scleral icterus (L), No scleral icterus (R) Respiratory: No respiratory distress, No accessory muscle use Cardiac/Chest: normal peripheral pulses, regular rate, rhythm, No edema Skin: normal color, warm/dry, No cyanosis, No diaphoresis Extremities: No pedal edema, No swelling Neuro/Psych: alert, normal mood/affect, other (Dense left-sided hemiparesis) ICD10 Worksheet Patient Problems: Problems Problem Status Onset CVA (cerebral vascular accident) Acute
[2018-05-06] MEDS: BISACODYL 10 MG SUPP PR PRN (18:39)
[2018-05-07] MEDS: METOPROLOL TARTRATE 25 MG TAB PO SCH ×2 (07:56→20:16)
[2018-05-07] MEDS: ATORVASTATIN CALCIUM 20 MG TAB PO SCH (07:57)
[2018-05-07] MEDS: FLUoxetine 10 MG CAP PO SCH (07:57)
[2018-05-07] MEDS: ASPIRIN 81 MG CHEWABLE TAB PO SCH (07:57)
[2018-05-07] MEDS: LISINOPRIL 20 MG TAB PO SCH (07:57)
[2018-05-07] MEDS: ENOXAPARIN 40 MG/0.4 ML SYR SC SCH (07:57)
[2018-05-07] MEDS: SENNOSIDES 1 TAB PO SCH ×2 (07:58→20:16)
[2018-05-07] MEDS: POLYETHYLENE GLYCOL 3350 17 GM PKT PO SCH (07:58)
--- NOTE | 2018-05-07 11:41 | SOAPPROG ---
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 * Initial functional independence measure is 32 on 04/30/2018: Increased to 36 as of 05/05/2018. Moderate assist for bed mobility and squat pivot transfer to the left. Emerging strength in left lower extremity but decreased motor planning. Minimal assist for grooming and hygiene, maximal assist for upper body and lower body dressing. She has left upper extremity proprioception but no movement yet. * Continue PT and OT to optimize mobility and activities of daily living towards the contact guard to minimal assist level. Dysphagia and possible aphasia. * Dysphagia 1 diet with honey thickened liquids. Has oral dyscoordination and a poor labial seal. She needs to be upright with meals due to risk for aspiration otherwise. She did not tolerate electronic stimulation to increase oropharyngeal muscle strength. * She has dysarthria as well as dysfluency and 30% intelligible. There are also word-finding and naming deficits and decreased memory, orientation, and problem solving. * Continue ACUTE CARE SURGEON Hypoxia overnight. Chest x-ray shows only atelectasis. CBC is normal. D- dimer is mildly elevated. She has a low pretest probability for pulmonary embolus per the Well's rule. * Ordered incentive spirometry. Continue to monitor. Hypertension. * Adequate control * Continue amlodipine 10 mg daily, lisinopril 40 mg daily and metoprolol 50 mg twice. Secondary stroke prevention including dyslipidemia. Will continue atorvastatin and aspirin pending result of LINQ monitor to rule out occult atrial fibrillation. Discussed with [facility] device quality control systems manager, 04/30/2017. Link monitor is operation all and is updating daily. Initiated fluoxetine to promote neuro recovery at 10 mg q.day on 04/29/2017.. F/E/N. There will be a dietary consult * Nurse reported coughing on nectar thick liquids the evening of 04/28/2018 and liquid texture was changed to honey thick. With questions regarding her ability to hydrate, she received 1000 cc of normal saline overnight. Feels thirsty and appears dehydrated on BMP 04/29/2017 with BUN of 62. Will hydrate again overnight 04/29 to 04/30/2018. * Hydration improved on [facility] 05/01/2018, with BUN of 31 and creatinine of 0.7. Continue to encourage oral fluid intake. * Has reduced fluid intake per I&O monitoring. Recheck BMP 05/07/2018. Pre-diabetes. Dietary consult. Prophylaxis. With left hemiparesis she is at high risk for DVT. Initiated enoxaparin 40 mg subcutaneous q.day starting 04/29/2017; continue until mobility improves significantly or until approximately 6 weeks out from the stroke. DISPOSITION: Has been living alone. Has assistance from a local son. Will likely need 6 weeks or more of therapy. Reassess in 1 week, 05/12/2017. If poor progress, may discharge to SNF. Followup: After her rehabilitation stay, she will follow up with Cardiology for evaluation of the LINQ monitor and she will follow up with neurologist, Dr. Dubose. 05/07/18 14:59 Subjective: Had shortness of breath during the night. She had 1.5 L of oxygen through part of the night. Breathing issues interfered with sleep. Otherwise without complaints. Objective: Vital Signs Temp Pulse Resp BP Pulse Ox 37.2 C 62 15 119/85 H 92 05/07/18 06:53 05/07/18 06:53 05/07/18 06:53 05/07/18 06:53 05/07/18 06:53 Laboratory Results 04/29/18 05:30 05/01/18 06:00 05/06/18 05/07/18 05/08/18 05:59 05:59 05:59 Intake Total 595 623 200 Output Total 500 100 Balance 95 523 200 Physical Exam - Physical Exam General Appearance: WD/WN, alert, no apparent distress Respiratory: normal breath sounds, No crackles, No rhonchi, No wheezing Cardiac/Chest: regular rate, rhythm, No edema, No JVD, No diastolic murmur, No systolic murmur Skin: normal color, warm/dry Neuro/Psych: alert, normal mood/affect, aphasia (Expressive), motor weakness ( Left-sided), speech abnormalities (Dysarthria) ICD10 Worksheet Patient Problems: Problems Problem Status Onset CVA (cerebral vascular accident) Acute
[2018-05-07 14:14] LABS: PLATELET COUNT 258 10^3/uL (150-400)
[2018-05-08] MEDS: POLYETHYLENE GLYCOL 3350 17 GM PKT PO SCH (08:27)
[2018-05-08] MEDS: METOPROLOL TARTRATE 25 MG TAB PO SCH ×2 (08:27→20:54)
[2018-05-08] MEDS: SENNOSIDES 1 TAB PO SCH ×2 (08:27→20:54)
[2018-05-08] MEDS: ASPIRIN 81 MG CHEWABLE TAB PO SCH (08:27)
[2018-05-08] MEDS: FLUoxetine 10 MG CAP PO SCH (08:27)
[2018-05-08] MEDS: ATORVASTATIN CALCIUM 20 MG TAB PO SCH (08:27)
[2018-05-08] MEDS: LISINOPRIL 20 MG TAB PO SCH (08:27)
[2018-05-08] MEDS: ENOXAPARIN 40 MG/0.4 ML SYR SC SCH (08:28)
[2018-05-08] MEDS ORDERED: FLUoxetine 10 MG CAP PO SCH (10:23)
--- NOTE | 2018-05-08 11:59 | SOAPPROG ---
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 * Initial functional independence measure is 32 on 04/30/2018: Increased to 36 as of 05/05/2018. Moderate assist for bed mobility and squat pivot transfer to the left. Emerging strength in left lower extremity but decreased motor planning. Minimal assist for grooming and hygiene, maximal assist for upper body and lower body dressing. She has left upper extremity proprioception but no movement yet. * Continue PT and OT to optimize mobility and activities of daily living towards the contact guard to minimal assist level. Dysphagia and possible aphasia. * Dysphagia 1 diet with honey thickened liquids. Has oral dyscoordination and a poor labial seal. She needs to be upright with meals due to risk for aspiration otherwise. She did not tolerate electronic stimulation to increase oropharyngeal muscle strength. * She has dysarthria as well as dysfluency and 30% intelligible. There are also word-finding and naming deficits and decreased memory, orientation, and problem solving. * Continue CROSSING GUARD Hypoxia overnight. Chest x-ray shows only atelectasis. CBC is normal. D- dimer is mildly elevated. She has a low pretest probability for pulmonary embolus per the Well's rule. * Ordered incentive spirometry 05/07/2018. Nocturnal hypoxia has resolved as of 05/08/2018. Hypertension. * Adequate control * Continue amlodipine 10 mg daily, lisinopril 40 mg daily and metoprolol 50 mg twice. Secondary stroke prevention including dyslipidemia. Will continue atorvastatin and aspirin pending result of LINQ monitor to rule out occult atrial fibrillation. Discussed with [facility] device corporate human resources manager, 04/30/2017. Link monitor is operation all and is updating daily. Initiated fluoxetine to promote neuro recovery at 10 mg q.day on 04/29/2017.. F/E/N. There will be a dietary consult * Nurse reported coughing on nectar thick liquids the evening of 04/28/2018 and liquid texture was changed to honey thick. With questions regarding her ability to hydrate, she received 1000 cc of normal saline overnight. Feels thirsty and appears dehydrated on BMP 04/29/2017 with BUN of 62. Will hydrate again overnight 04/29 to 04/30/2018. * Hydration improved on [facility] 05/01/2018, with BUN of 31 and creatinine of 0.7. Continue to encourage oral fluid intake. * Has reduced fluid intake per I&O monitoring. Recheck BMP 05/07/2018. Pre-diabetes. Dietary consult. Prophylaxis. With left hemiparesis she is at high risk for DVT. Initiated enoxaparin 40 mg subcutaneous q.day starting 04/29/2017; continue until mobility improves significantly or until approximately 6 weeks out from the stroke. DISPOSITION: Has been living alone. Has assistance from a local son. Will likely need 6 weeks or more of therapy. Reassess in 1 week, 05/12/2017. If poor progress, may discharge to SNF. Followup: After her rehabilitation stay, she will follow up with Cardiology for evaluation of the LINQ monitor and she will follow up with neurologist, Dr. Dubose. 05/08/18 11:56 Subjective: No shortness of breath overnight and no hypoxia documented by nursing. She indicates that she is compliant with incentive spirometry. No cough, no fevers or chills. No complaints. Objective: Vital Signs Temp Pulse Resp BP Pulse Ox 37.1 C 67 16 147/82 H 92 05/08/18 06:07 05/08/18 06:07 05/08/18 06:07 05/08/18 06:07 05/08/18 06:07 Laboratory Results 05/07/18 14:05 05/07/18 14:05 05/07/18 05/08/18 05/09/18 05:59 05:59 05:59 Intake Total 623 420 150 Output Total 100 Balance 523 420 150 Physical Exam - Physical Exam General Appearance: WD/WN, alert, no apparent distress Respiratory: normal breath sounds, No crackles, No rhonchi, No wheezing Cardiac/Chest: regular rate, rhythm, No edema, No diastolic murmur, No systolic murmur Skin: normal color, warm/dry Neuro/Psych: alert, normal mood/affect, motor weakness (Left upper and lower extremities) ICD10 Worksheet Patient Problems: Problems Problem Status Onset CVA (cerebral vascular accident) Acute
[2018-05-09] MEDS: POLYETHYLENE GLYCOL 3350 17 GM PKT PO SCH (08:30)
[2018-05-09] MEDS: METOPROLOL TARTRATE 25 MG TAB PO SCH ×2 (08:31→20:42)
[2018-05-09] MEDS: LISINOPRIL 20 MG TAB PO SCH (08:31)
[2018-05-09] MEDS: ATORVASTATIN CALCIUM 20 MG TAB PO SCH (08:32)
[2018-05-09] MEDS: FLUoxetine 20 MG CAP PO SCH (08:33)
[2018-05-09] MEDS: ASPIRIN 81 MG CHEWABLE TAB PO SCH (08:35)
[2018-05-09] MEDS: SENNOSIDES 1 TAB PO SCH ×2 (08:35→20:42)
[2018-05-09] MEDS: ENOXAPARIN 40 MG/0.4 ML SYR SC SCH (09:04)
--- NOTE | 2018-05-09 09:48 | SOAPPROG ---
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 * Initial functional independence measure is 32 on 04/30/2018: Increased to 36 as of 05/05/2018. Moderate assist for bed mobility and squat pivot transfer to the left. Emerging strength in left lower extremity but decreased motor planning. Minimal assist for grooming and hygiene, maximal assist for upper body and lower body dressing. She has left upper extremity proprioception but no movement yet. * Continue PT and OT to optimize mobility and activities of daily living towards the contact guard to minimal assist level. Dysphagia and possible aphasia. * Dysphagia 1 diet with honey thickened liquids. Has oral dyscoordination and a poor labial seal. She needs to be upright with meals due to risk for aspiration. She did not tolerate electronic stimulation to increase oropharyngeal muscle strength. * She has dysarthria as well as dysfluency and 30% intelligible. There are also word-finding and naming deficits and decreased memory, orientation, and problem solving. * Continue SOCK LINER Hypoxia overnight. Chest x-ray shows only atelectasis. CBC is normal. D- dimer is mildly elevated. She has a low pretest probability for pulmonary embolus per the Well's rule. * Ordered incentive spirometry 05/07/2018. Nocturnal hypoxia has resolved as of 05/08/2018. Hypertension. * Low blood pressure in the morning of 05/09/2018. Laboratory evaluation 2 days prior not consistent with infection or metabolic derangements and no blood loss on CBC. No respiratory issues. Unclear etiology. Cut all antihypertensives by half, to amlodipine 5 mg, losartan 50 mg, and metoprolol 25 mg twice daily. Changed amlodipine from morning to evening dosing. Continue to assess. Secondary stroke prevention including dyslipidemia. Will continue atorvastatin and aspirin pending result of LINQ monitor to rule out occult atrial fibrillation. Discussed with [facility] device transportation project manager, 04/30/2017. Link monitor is operation all and is updating daily. Initiated fluoxetine to promote neuro recovery at 10 mg q.day on 04/29/2017.. F/E/N. There will be a dietary consult * Nurse reported coughing on nectar thick liquids the evening of 04/28/2018 and liquid texture was changed to honey thick. With questions regarding her ability to hydrate, she received 1000 cc of normal saline overnight. Feels thirsty and appears dehydrated on [facility] 04/29/2017 with BUN of 62. Will hydrate again overnight 04/29 to 04/30/2018. * Hydration improved on [facility] 05/01/2018, with BUN of 31 and creatinine of 0.7. Continue to encourage oral fluid intake. * Has reduced fluid intake per I&O monitoring. Recheck [facility] 05/07/2018. Pre-diabetes. Dietary consult. Prophylaxis. With left hemiparesis she is at high risk for DVT. Initiated enoxaparin 40 mg subcutaneous q.day starting 04/29/2017; continue until mobility improves significantly or until approximately 6 weeks out from the stroke. DISPOSITION: Has been living alone. Has assistance from a local son. Will likely need 6 weeks or more of therapy. Reassess in 1 week, 05/12/2017. If poor progress, may discharge to SNF. Followup: After her rehabilitation stay, she will follow up with Cardiology for evaluation of the LINQ monitor and she will follow up with neurologist, Dr. Dubose. 05/09/18 09:44 Subjective: Nurse notes low blood pressure this morning. Patient denies any symptoms of lightheadedness. No cough or dyspnea, no fevers or chills. Not in pain. No dysuria. Objective: Vital Signs Temp Pulse Resp BP Pulse Ox 36.7 C 69 16 92/65 L 93 05/08/18 20:00 05/09/18 08:31 05/08/18 20:00 05/09/18 08:34 05/09/18 08:00 Laboratory Results 05/07/18 14:05 05/07/18 14:05 05/08/18 05/09/18 05/10/18 05:59 05:59 05:59 Intake Total 420 475 150 Balance 420 475 150 Physical Exam - Physical Exam General Appearance: WD/WN, alert, no apparent distress Respiratory: normal breath sounds, No crackles, No rhonchi, No wheezing Cardiac/Chest: regular rate, rhythm, No edema, No diastolic murmur, No systolic murmur Skin: normal color, warm/dry Neuro/Psych: alert, normal mood/affect, motor weakness (Left upper and lower extremities) ICD10 Worksheet Patient Problems: Problems Problem Status Onset CVA (cerebral vascular accident) Acute
[2018-05-10] MEDS: POLYETHYLENE GLYCOL 3350 17 GM PKT PO SCH (07:53)
[2018-05-10] MEDS: SENNOSIDES 1 TAB PO SCH ×2 (07:53→20:25)
[2018-05-10] MEDS: FLUoxetine 20 MG CAP PO SCH (07:53)
[2018-05-10] MEDS: ENOXAPARIN 40 MG/0.4 ML SYR SC SCH (07:53)
[2018-05-10] MEDS: ASPIRIN 81 MG CHEWABLE TAB PO SCH (07:54)
[2018-05-10] MEDS: METOPROLOL TARTRATE 25 MG TAB PO SCH ×2 (07:54→20:25)
[2018-05-10] MEDS: LISINOPRIL 20 MG TAB PO SCH (07:54)
[2018-05-10] MEDS: ATORVASTATIN CALCIUM 20 MG TAB PO SCH (07:54)
[2018-05-10] MEDS ORDERED: METOPROLOL TARTRATE 25 MG TAB PO ONE (11:08)
--- NOTE | 2018-05-10 11:08 | SOAPPROG ---
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 * Initial functional independence measure is 32 on 04/30/2018: Increased to 36 as of 05/05/2018. Moderate assist for bed mobility and squat pivot transfer to the left. Emerging strength in left lower extremity but decreased motor planning. Minimal assist for grooming and hygiene, maximal assist for upper body and lower body dressing. She has left upper extremity proprioception but no movement yet. * Continue PT and OT to optimize mobility and activities of daily living towards the contact guard to minimal assist level. Mild left shoulder subluxation-currently asymptomatic Dysphagia and possible aphasia. * Dysphagia 1 diet with honey thickened liquids. Has oral dyscoordination and a poor labial seal. She needs to be upright with meals due to risk for aspiration. She did not tolerate electronic stimulation to increase oropharyngeal muscle strength. * She has dysarthria as well as dysfluency and 30% intelligible. There are also word-finding and naming deficits and decreased memory, orientation, and problem solving. * Continue ICU NURSE Hypoxia overnight. Chest x-ray shows only atelectasis. CBC is normal. D- dimer is mildly elevated. She has a low pretest probability for pulmonary embolus per the Well's rule. * Ordered incentive spirometry 05/07/2018. Nocturnal hypoxia has resolved as of 05/08/2018. Hypertension. Blood pressure 05/10 167/95. Will give 1 extra dose of Lopressor 25 mg today. Will continue to monitor blood pressures. * Low blood pressure in the morning of 05/09/2018. Laboratory evaluation 2 days prior not consistent with infection or metabolic derangements and no blood loss on CBC. No respiratory issues. Unclear etiology. Cut all antihypertensives by half, to amlodipine 5 mg, losartan 50 mg, and metoprolol 25 mg twice daily. Changed amlodipine from morning to evening dosing. Continue to assess. Secondary stroke prevention including dyslipidemia. Will continue atorvastatin and aspirin pending result of LINQ monitor to rule out occult atrial fibrillation. Discussed with [facility] device lawn service manager, 04/30/2017. Link monitor is operation all and is updating daily. Initiated fluoxetine to promote neuro recovery at 10 mg q.day on 04/29/2017.. F/E/N. There will be a dietary consult * Nurse reported coughing on nectar thick liquids the evening of 04/28/2018 and liquid texture was changed to honey thick. With questions regarding her ability to hydrate, she received 1000 cc of normal saline overnight. Feels thirsty and appears dehydrated on [facility] 04/29/2017 with BUN of 62. Will hydrate again overnight 04/29 to 04/30/2018. * Hydration improved on [facility] 05/01/2018, with BUN of 31 and creatinine of 0.7. Continue to encourage oral fluid intake. * Has reduced fluid intake per I&O monitoring. Recheck [facility] 05/07/2018. Pre-diabetes. Dietary consult. Prophylaxis. With left hemiparesis she is at high risk for DVT. Initiated enoxaparin 40 mg subcutaneous q.day starting 04/29/2017; continue until mobility improves significantly or until approximately 6 weeks out from the stroke. DISPOSITION: Has been living alone. Has assistance from a local son. Will likely need 6 weeks or more of therapy. Reassess in 1 week, 05/12/2017. If poor progress, may discharge to SNF. Followup: After her rehabilitation stay, she will follow up with Cardiology for evaluation of the LINQ monitor and she will follow up with neurologist, Dr. Dubose. Plan: 05/10/18 11:06 Subjective: No problems reported by nursing staff. Rubber Mill Operator was present in the room during today's rounds. She denies headache, chest pain, shortness of breath. Denies dysuria. She does not report left shoulder pain. She does not report left upper extremity pain were dysesthesias in the left hand, according to the tape keller operator. Objective: Vital Signs Temp Pulse Resp BP Pulse Ox 36.6 C 62 15 167/95 H 92 05/10/18 05:38 05/10/18 07:54 05/10/18 05:38 05/10/18 07:54 05/10/18 05:38 Laboratory Results 05/07/18 14:05 05/07/18 14:05 05/09/18 05/10/18 05/11/18 05:59 05:59 05:59 Intake Total 475 400 Output Total 3 Balance 475 397 Physical Exam - Physical Exam General Appearance: WD/WN, alert, no apparent distress Respiratory: lungs clear, normal breath sounds Cardiac/Chest: No edema Abdomen: normal bowel sounds, non-tender, soft Extremities: other (Mild left shoulder subluxation, nontender to palpation. No swelling in the left upper extremity.), No swelling, No Jama's sign Neuro/Psych: aphasia, motor weakness (Dense left hemiparesis.), speech abnormalities ICD10 Worksheet Patient Problems: Problems Problem Status Onset CVA (cerebral vascular accident) Acute
[2018-05-10] MEDS: MAG HYDROX/AL HYDROX/SIMETH 30 ML UDCUP PO PRN (19:13)
[2018-05-11] MEDS: BISACODYL 10 MG SUPP PR PRN (06:15)
[2018-05-11] MEDS: SENNOSIDES 1 TAB PO SCH ×2 (09:13→20:19)
[2018-05-11] MEDS: POLYETHYLENE GLYCOL 3350 17 GM PKT PO SCH (09:13)
[2018-05-11] MEDS: ASPIRIN 81 MG CHEWABLE TAB PO SCH (09:15)
[2018-05-11] MEDS: ATORVASTATIN CALCIUM 20 MG TAB PO SCH (09:15)
--- NOTE | 2018-05-11 09:17 | SOAPPROG ---
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 * Initial functional independence measure is 32 on 04/30/2018: Increased to 36 as of 05/05/2018. Moderate assist for bed mobility and squat pivot transfer to the left. Emerging strength in left lower extremity but decreased motor planning. Minimal assist for grooming and hygiene, maximal assist for upper body and lower body dressing. She has left upper extremity proprioception but no movement yet. DENSE LEFT HEMIPLEGIA WITHOUT ACTIVE MOVEMENT OF LEFT SHOULDER OR HIP GIRDLE MUSCLES. NO ACTIVE LEFT HIP FLEXION OR KNEE EXTENSION. * Continue PT and OT to optimize mobility and activities of daily living towards the contact guard to minimal assist level. Mild left shoulder subluxation-currently asymptomatic Dysphagia and possible aphasia. * Dysphagia 1 diet with honey thickened liquids. Has oral dyscoordination and a poor labial seal. She needs to be upright with meals due to risk for aspiration. She did not tolerate electronic stimulation to increase oropharyngeal muscle strength. * She has dysarthria as well as dysfluency and 30% intelligible. There are also word-finding and naming deficits and decreased memory, orientation, and problem solving. 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 Chest x-ray shows only atelectasis. CBC is normal. D- dimer is mildly elevated. She has a low pretest probability for pulmonary embolus per the Well's rule. * Ordered incentive spirometry 05/07/2018. Nocturnal hypoxia has resolved as of 05/08/2018. Hypertension. Blood pressure ON 05/11 104/73. Will give 1 extra dose of Lopressor 25 mg today. Will continue to monitor blood pressures. * Low blood pressure in the morning of 05/09/2018. Laboratory evaluation 2 days prior not consistent with infection or metabolic derangements and no blood loss on CBC. No respiratory issues. Unclear etiology. Cut all antihypertensives by half, to amlodipine 5 mg, losartan 50 mg, and metoprolol 25 mg twice daily. Changed amlodipine from morning to evening dosing. Continue to assess. Secondary stroke prevention including dyslipidemia. Will continue atorvastatin and aspirin pending result of LINQ monitor to rule out occult atrial fibrillation. Discussed with [facility] food and beverage service manager, 04/30/2017. Link monitor is operation all and is updating daily. Initiated fluoxetine to promote neuro recovery at 10 mg q.day on 04/29/2017.. F/E/N. There will be a dietary consult * Nurse reported coughing on nectar thick liquids the evening of 04/28/2018 and liquid texture was changed to honey thick. With questions regarding her ability to hydrate, she received 1000 cc of normal saline overnight. Feels thirsty and appears dehydrated on [facility] 04/29/2017 with BUN of 62. Will hydrate again overnight 04/29 to 04/30/2018. * Hydration improved on [facility] 05/01/2018, with BUN of 31 and creatinine of 0.7. Continue to encourage oral fluid intake. * Has reduced fluid intake per I&O monitoring. Recheck [facility] 05/07/2018. Pre-diabetes. Dietary consult. Prophylaxis. With left hemiparesis she is at high risk for DVT. Initiated enoxaparin 40 mg subcutaneous q.day starting 04/29/2017; continue until mobility improves significantly or until approximately 6 weeks out from the stroke. DISPOSITION: Has been living alone. Has assistance from a local son. Will likely need 6 weeks or more of therapy. Reassess in 1 week, 05/12/2017. If poor progress, may discharge to SNF. Followup: After her rehabilitation stay, she will follow up with Cardiology for evaluation of the LINQ monitor and she will follow up with neurologist, Dr. Dubose. Plan: 05/10/18 11:06 05/11/18 09:16 Subjective: NO PROBLEMS REPORTED BY NURSING OR REHAB STAFF. PATIENT DOES NOT VERBALIZE ANY COMPLAINTS. ANSWERS NO TO HEADACHE, CHEST PAIN, SHORTNESS OF BREATH, DYSURIA. NURSING REPORTS SHE HAD A LARGE BOWEL MOVEMENT TODAY. Objective: Vital Signs Temp Pulse Resp BP Pulse Ox 36.8 C 81 16 154/94 H 92 05/10/18 19:45 05/10/18 20:25 05/10/18 19:45 05/10/18 20:25 05/10/18 19:45 Laboratory Results 05/07/18 14:05 05/07/18 14:05 05/10/18 05/11/18 05/12/18 05:59 05:59 05:59 Intake Total 400 490 Output Total 3 Balance 397 490 Physical Exam - Physical Exam General Appearance: WD/WN, alert, no apparent distress, other (SITTING IN WHEELCHAIR. LAP BOARD NOT IN PLACE.) Respiratory: lungs clear, normal breath sounds Abdomen: non-tender, soft, other (NO SUPRAPUBIC TENDERNESS) Skin: normal color, warm/dry Lymphatic: other (NO SWELLING OF LEFT HAND.) Extremities: other (NO LEFT SHOULDER SUBLUXATION.), No swelling, No Jama's sign (EXPRESSIVE APHASIA. SPEAKS SHORT SENTENCES WITH ENCOURAGEMENT.) Neuro/Psych: motor weakness (DENSE LEFT HEMIPARESIS.) ICD10 Worksheet Patient Problems: Problems Problem Status Onset CVA (cerebral vascular accident) Acute
[2018-05-11] MEDS: FLUoxetine 20 MG CAP PO SCH (09:21)
[2018-05-11] MEDS: ENOXAPARIN 40 MG/0.4 ML SYR SC SCH (09:25)
[2018-05-11] MEDS: METOPROLOL TARTRATE 25 MG TAB PO SCH ×2 (09:28→20:18)
[2018-05-11] MEDS: LISINOPRIL 20 MG TAB PO SCH (09:28)
[2018-05-12] MEDS: ENOXAPARIN 40 MG/0.4 ML SYR SC SCH (08:42)
[2018-05-12] MEDS: POLYETHYLENE GLYCOL 3350 17 GM PKT PO SCH (08:42)
[2018-05-12] MEDS: ATORVASTATIN CALCIUM 20 MG TAB PO SCH (08:43)
[2018-05-12] MEDS: LISINOPRIL 20 MG TAB PO SCH (08:43)
[2018-05-12] MEDS: ASPIRIN 81 MG CHEWABLE TAB PO SCH (08:43)
[2018-05-12] MEDS: SENNOSIDES 1 TAB PO SCH ×2 (08:43→20:30)
[2018-05-12] MEDS: FLUoxetine 20 MG CAP PO SCH (08:44)
[2018-05-12] MEDS: METOPROLOL TARTRATE 25 MG TAB PO SCH ×2 (08:44→20:30)
--- NOTE | 2018-05-12 09:30 | SOAPPROG ---
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 * Initial functional independence measure is 32 on 04/30/2018: Increased to 36 as of 05/05/2018. Moderate assist for bed mobility and squat pivot transfer to the left. Emerging strength in left lower extremity but decreased motor planning. Minimal assist for grooming and hygiene, maximal assist for upper body and lower body dressing. She has left upper extremity proprioception but no movement yet. DENSE LEFT HEMIPLEGIA WITHOUT ACTIVE MOVEMENT OF LEFT SHOULDER GIRDLE MUSCLES. 05/12 MOTOR EXAM WHILE LYING IN BED SHOWS THAT SHE IS ENGAGING THE LEFT ANKLE DORSIFLEXORS, QUADRICEPS, HAMSTRINGS AND HIP FLEXORS, ALTHOUGH THE LATTER TO A LESSER EXTENT. * Continue PT and OT to optimize mobility and activities of daily living towards the contact guard to minimal assist level. Dysphagia and possible aphasia. * Dysphagia 1 diet with honey thickened liquids. Has oral dyscoordination and a poor labial seal. She needs to be upright with meals due to risk for aspiration. She did not tolerate electronic stimulation to increase oropharyngeal muscle strength. * She has dysarthria as well as dysfluency and 30% intelligible. There are also word-finding and naming deficits and decreased memory, orientation, and problem solving. 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 Blood pressure ON 05/12 149/85. WILL HAVE NURSING RECHECK TODAY AND IF ELEVATED THEN WILL CONSIDER INCREASING DAILY DOSAGE OF LOPRESSOR.. Will give 1 extra dose of Lopressor 25 mg today. Will continue to monitor blood pressures. * Low blood pressure in the morning of 05/09/2018. Laboratory evaluation 2 days prior not consistent with infection or metabolic derangements and no blood loss on CBC. No respiratory issues. Unclear etiology. Cut all antihypertensives by half, to amlodipine 5 mg, losartan 50 mg, and metoprolol 25 mg twice daily. Changed amlodipine from morning to evening dosing. Continue to assess. Secondary stroke prevention including dyslipidemia. Will continue atorvastatin and aspirin pending result of LINQ monitor to rule out occult atrial fibrillation. Discussed with [facility] business liaison manager, 04/30/2017. Link monitor is operation all and is updating daily. Initiated fluoxetine to promote neuro recovery at 10 mg q.day on 04/29/2017.. F/E/N. There will be a dietary consult * Nurse reported coughing on nectar thick liquids the evening of 04/28/2018 and liquid texture was changed to honey thick. With questions regarding her ability to hydrate, she received 1000 cc of normal saline overnight. Feels thirsty and appears dehydrated on [facility] 04/29/2017 with BUN of 62. Will hydrate again overnight 04/29 to 04/30/2018. * Hydration improved on [facility] 05/01/2018, with BUN of 31 and creatinine of 0.7. Continue to encourage oral fluid intake. * Has reduced fluid intake per I&O monitoring. Recheck [facility] 05/07/2018. Pre-diabetes. Dietary consult. Prophylaxis. With left hemiparesis she is at high risk for DVT. Initiated enoxaparin 40 mg subcutaneous q.day starting 04/29/2017; continue until mobility improves significantly or until approximately 6 weeks out from the stroke. DISPOSITION: Has been living alone. Has assistance from a local son. Will likely need 6 weeks or more of therapy. Reassess in 1 week, 05/12/2017. If poor progress, may discharge to SNF. Followup: After her rehabilitation stay, she will follow up with Cardiology for evaluation of the LINQ monitor and she will follow up with neurologist, Dr. Dubose. Plan: 05/10/18 11:06 05/11/18 09:16 05/12/18 09:08 Subjective: NURSING REPORTS SHE IS STILL HAVING SOME URINARY INCONTINENCE EPISODES. NO OTHER COMPLAINTS PER PATIENT. Objective: Vital Signs Temp Pulse Resp BP Pulse Ox 36.7 C 63 14 149/85 H 90 L 05/12/18 07:24 05/12/18 07:24 05/12/18 07:24 05/12/18 07:24 05/12/18 07:24 Laboratory Results 05/07/18 14:05 05/07/18 14:05 05/11/18 05/12/18 05/13/18 05:59 05:59 05:59 Intake Total 490 495 Output Total 200 Balance 490 295 Physical Exam - Physical Exam General Appearance: WD/WN, alert, no apparent distress Respiratory: lungs clear, normal breath sounds Cardiac/Chest: No edema, No gallop, No JVD Abdomen: non-tender, soft, other (NO SUPRAPUBIC TENDERNESS), No distended Extremities: No swelling, No Jama's sign Neuro/Psych: alert, aphasia (SHE SPEAKS SHORT SENTENCES WITH VERBAL CUING AND ENCOURAGEMENT. SHE DOES FOLLOW VERBAL COMMANDS), motor weakness (LEFT HEMIPARESIS; SHE DOES HAVE SOME ACTIVATION OF THE LEFT ANKLE DORSIFLEXORS, QUADRICEPS, HAMSTRINGS, SHE HAS DIFFICULTY PERFORMING SUPINE LEG LIFT BUT SHE DOES ENGAGE THE HIP FLEXORS. NO SIGNIFICANT RETURN OF LEFT SHOULDER GIRDLE MUSCLES) ICD10 Worksheet Patient Problems: Problems Problem Status Onset CVA (cerebral vascular accident) Acute
[2018-05-12] MEDS: ONDANSETRON DISINTEGRATING 4 MG TAB PO PRN (19:51)
[2018-05-13] MEDS: ENOXAPARIN 40 MG/0.4 ML SYR SC SCH (08:57)
[2018-05-13] MEDS: FLUoxetine 20 MG CAP PO SCH (08:57)
[2018-05-13] MEDS: ATORVASTATIN CALCIUM 20 MG TAB PO SCH (08:57)
[2018-05-13] MEDS: LISINOPRIL 20 MG TAB PO SCH (08:57)
[2018-05-13] MEDS: ASPIRIN 81 MG CHEWABLE TAB PO SCH (08:58)
[2018-05-13] MEDS: SENNOSIDES 1 TAB PO SCH ×2 (08:58→20:54)
[2018-05-13] MEDS: METOPROLOL TARTRATE 25 MG TAB PO SCH ×2 (08:58→20:54)
[2018-05-13] MEDS: POLYETHYLENE GLYCOL 3350 17 GM PKT PO SCH (08:58)
--- NOTE | 2018-05-13 13:48 | SOAPPROG ---
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 Today's update: Making slow progress in rehabilitation. Notes that she has had some abdominal discomfort, nursing feels likely related to lack of bowel movement. Encouraging bowel movement, monitor closely, encouraging p.r.n. Use of medications for regular bowel program. Labs indicate that her BUN is still a bit elevated, creatinine is stable. Oral intake is fair, ongoing nutrition and hydration are concern given the restricted diet and patient's dislike of the food in the hospital. I do not feel that this warrants placement of a PEG tube, the patient voiced that she did not want a tube at this time either. A total of 40 min was spent on the floor in the care of the patient, the majority of which was spent in counseling coordination of care regarding nutrition and hydration, understanding possible need for feeding tube and discussion with patient in this regard, with a portion to her pressure at the bedside. Right basal ganglia stroke on 04/21/2018 with dense left sided weakness and impairments in mobility, self-care, dysphagia, possible aphasia. * Continue PT, OT, speech for impairments listed above. Severe impairments in mobility and self-care. * Continue modified diet, liberalizing when possible. * Encourage foods that she enjoys of the proper texture, dietary following * Encourage fluid intake * No indication for a PEG tube at this time, discussed at length with patient * Disposition at this point is somewhat unclear, likely to fdc facility in coming days pending feedback from family and insurance. Secondary stroke prevention: * Blood pressure monitoring, continue amlodipine, lisinopril, metoprolol. * Continue atorvastatin and aspirin for dyslipidemia and stroke prevention * Continue cardiac monitoring with remote device. * Continue fluoxetine for neural recovery at 20 mg daily Pre diabetes: * Dietary consult DVT prophylaxis: * Enoxaparin 40 mg subcutaneous daily Follow-up: Plan to follow-up with cardiology and neurology, Dr. Dubose 05/01/18 08:37 05/01/18 08:46 05/06/18 09:09 05/06/18 12:18 05/13/18 13:40 05/13/18 13:51 Subjective: Chief complaint: Rehabilitation progress and enteral nutrition No acute events overnight. Patient denies any new shortness of breath or chest pain, no new numbness, tingling, or weakness. Patient was evaluated with a portion TURP order. Patient also was counseled on the need for adequate nutrition and hydration, she endorsed 1 of the barriers was poor tasting food at the hospital. Encouraged her to talk with family about bringing in outside food that may be more palate double, encouraging consistent hydration. Patient endorsed that she is not interested in a feeding tube at this time. Objective: Vital Signs Temp Pulse Resp BP Pulse Ox 36.9 C 76 16 117/76 91 L 05/13/18 05:52 05/13/18 08:58 05/13/18 05:52 05/13/18 08:58 05/13/18 05:52 Laboratory Results 05/07/18 14:05 05/13/18 06:20 05/12/18 05/13/18 05/14/18 05:59 05:59 05:59 Intake Total 495 420 Output Total 200 Balance 295 420 Physical Exam - Physical Exam General Appearance: WD/WN, alert, no apparent distress EENT: No scleral icterus (R), No scleral icterus (L) Respiratory: No respiratory distress, No accessory muscle use Cardiac/Chest: normal peripheral pulses, regular rate, rhythm, No edema Skin: normal color, warm/dry, No cyanosis, No diaphoresis Extremities: No pedal edema, No swelling Neuro/Psych: alert, normal mood/affect, motor weakness (Dense left-sided hemiparesis, in a sling, no spasticity. Good range of passive motion in the left arm.), speech abnormalities (Next Burmese and anguish, apparently more intelligible in Burmese) ICD10 Worksheet Patient Problems: Problems Problem Status Onset CVA (cerebral vascular accident) Acute
[2018-05-14 05:45] VITALS: BP 144/108
[2018-05-14] MEDS: BISACODYL 10 MG SUPP PR PRN (06:10)
[2018-05-14] MEDS: ATORVASTATIN CALCIUM 20 MG TAB PO SCH (08:00)
[2018-05-14] MEDS: LISINOPRIL 20 MG TAB PO SCH (08:00)
[2018-05-14] MEDS: SENNOSIDES 1 TAB PO SCH (08:00)
[2018-05-14] MEDS: ENOXAPARIN 40 MG/0.4 ML SYR SC SCH (08:00)
[2018-05-14] MEDS: METOPROLOL TARTRATE 25 MG TAB PO SCH (08:00)
[2018-05-14] MEDS: ASPIRIN 81 MG CHEWABLE TAB PO SCH (08:00)
[2018-05-14] MEDS: FLUoxetine 20 MG CAP PO SCH (08:00)
[2018-05-14] MEDS: POLYETHYLENE GLYCOL 3350 17 GM PKT PO SCH (08:00)
--- NOTE | 2018-05-14 13:16 | PDOREHIP ---
Admission [facility] - Admission - 3 Day Assessment Period Admission Date/Day 1: 04/28/18 Day 2: 04/29/18 Day 3: 04/30/18 - Active Diagnoses Comorbidities and Co-existing Conditions at Admission: 27990. None of the Above Discharge [facility] - Discharge - 3 Day Assessment Period 2 Days Prior to Anticipated Discharge Date: 05/12/18 1 Day Prior to Anticipated Discharge Date: 05/13/18 Anticipated Discharge Date: 05/14/18 - Discharge Skin Conditions Unhealed Pressure Ulcer (1 or more/Stage 1 or >)-Discharge: 0. No # Stage 1 Pressure Ulcers-Discharge: 0 # Stage 2 Pressure Ulcers-Discharge: 0 # of These Stage 2 Pressure Ulcers Present on Admission: 0 # Stage 3 Pressure Ulcers-Discharge: 0 # of These Stage 3 Pressure Ulcers Present on Admission: 0 # Stage 4 Pressure Ulcers-Discharge: 0 # of These Stage 4 Pressure Ulcers Present on Admission: 0 # Unstageable Pressure Ulcers (Non-remove Dress)-Discharge: 0 # These Unstageable Pressure Ulcers (NRD)-Present on Admit: 0 # Unstageable Pressure Ulcers (Slough/Eschar)-Discharge: 0 # These Unstageable Pressure Ulcers(Slough) Present on Admit: 0 # Unstageable Pressure Ulcers (Deep Tissue Injury)-Discharge: 0 # These Unstageable Pressure Ulcers (DTI) Present on Admit: 0
--- NOTE | 2018-05-14 13:42 | GDS ---
ADMITTING DIAGNOSIS: Cerebrovascular accident, right basal ganglia, with left- sided weakness, dysphagia and aphasia. DISCHARGE DIAGNOSIS: Cerebrovascular accident, right basal ganglia, with left- sided weakness, dysphagia and aphasia. OTHER DISCHARGE DIAGNOSIS: Hypertension. COMPLICATIONS: None. CONSULTATIONS: None. PROCEDURES: None. HISTORY AND HOSPITAL COURSE: This patient was admitted from [facility]. She had presented there on 04/21/2018 with left- sided weakness, aphasia, and left facial droop. She was diagnosed with a right basal ganglia CVA. CT angiogram of the head and neck was negative for any occlusions. She had a very high blood pressure at 209/148. She was treated with IV tPA thrombolysis and blood pressure control with initiation and titration of medications. MRI of the brain on 04/23/2018 showed a recent infarct of the basal ganglia extending through the anterior limb of the right internal capsule to the posterior margin of the caudate nucleus. She had significant dysphagia. Echocardiogram showed mild concentric LVH, global hypercontractility, ejection fraction 80% to 85%, and trace anterior pericardial effusion versus fat pad on the agitated saline study was negative for intracardiac shunting. She had slow progress in rehabilitation. Her initial functional independence measure was 32 on 04/30/2018 which is consistent with half-way level of care and needing assistance with all aspects of mobility and activities of daily living. This increased to 41 as of 05/12/2017, which is minimal improvement and still consistent with half-way level of care.. She continued to have dysphagia and though she was progressing in other areas of function, she was not advanced in terms of her food and liquid texture. She was on a dysphagia 1 diet with honey thickened liquids. She was beginning to have trials of a dysphagia 2 diet with nectar-thick liquids, working with Speech and Language Pathology. She also had a dysarthria and disfluency and was largely unintelligible. She preferred to speak her ch[place] Barbadian, though she had been fluent in Urdu. Speech Therapy noted word-finding and naming deficits as well as decreased memory, orientation, and problem solving. She had an episode of hypoxia on one of the nights that she was on the rehabilitation unit. A chest x-ray showed only atelectasis. CBC was normal. She had a mild elevation of D-dimer, but she had low pretest probability for pulmonary embolus, so the possibility of thromboembolism was not pursued further. She was started on incentive spirometry and her nocturnal hypoxia resolved. Regarding hypertension, there was a low blood pressure on the medications which were ordered from the hospital. Antihypertensive medications were reduced by half with the doses being amlodipine 5 mg q. day, losartan 50 mg q. day, and metoprolol 25 mg twice daily. Amlodipine was changed from morning to evening dosing. Her blood pressure overall remained adequately controlled with no further lows and in the several days before discharge she ranged from 112/64 to 153/93. Higher blood pressures were generally seen in the evening. There was concern regarding hydration. She received IV hydration on 2 occasions overnight. She continued to have reduced fluid intake. Laboratory studies were consistent with mild dehydration, but were stable. On 05/13/2018 basic metabolic profile showed a BUN of 34 and a creatinine of 0.7, otherwise renal function and electrolytes were normal. With her slow progress on the rehabilitation unit [facility], decision was made to transfer her to a care home facility for more prolonged rehabilitation. DISCHARGE PLAN/DISPOSITION: To the Center at [facility]. CONDITION: Good. DIET: Regular with a dysphagia 1 pureed diet and honey thick liquids. ACTIVITY: Ad luna, but she needs assistance for all aspects of mobility and activities of daily living. ALLERGIES: There are no known drug allergies. MEDICATIONS UPON DISCHARGE: 1. Acetaminophen 650 mg p.o. q.4 hours p.r.n. 2. Amlodipine 10 mg p.o. q. day. 3. Aspirin 81 mg p.o. q. day. 4. Atorvastatin 20 mg p.o. q. day. 5. Enoxaparin 40 mg subcutaneous q. day, which likely should continue through June 01 which would be 6 weeks post CVA. 6. Fluoxetine 20 mg p.o. q. day. 7. Metoprolol 25 mg p.o. twice daily. 8. Lisinopril 20 mg p.o. q. day. 9. Ondansetron 4 mg p.o. q.6 hours p.r.n. nausea. 10. Polyethylene glycol 17 g in water p.o. q. day. 11. Senna 1 p.o. twice daily. ISSUES TO BE ADDRESSED AT FOLLOWUP: 1. CVA with left hemiparesis, severe dysphagia, and aphasia. She will continue PT, OT, and SPECIAL EDUCATION ASSISTANT at the care home [facility] as well as care by Nursing and JIG WORKER. She will follow up with her new attending physician at the care home [facility]. 2. Hypertension. Blood pressure has been somewhat labile. Advise continued monitoring and adjustment of medications. 3. Fluid, electrolytes, and nutrition. Her oral intake is low. It is difficult for her to maintain adequate hydration on thickened liquids. She should have consultation with the dietitian at the [facility] and continued efforts to maintain nutrition and hydration. There was discussion of placing of a feeding tube, and she did not want to have this done. Copy requested to: [facility] Attention: New primary care provider [facility] /[id number]
== END 2018-05-14 15:08 | DRG 57 ==
LOC: BREH 13:19
PROVIDERS: ADMIT Internal Medicine Hospice and Palliative Medicine; ATTEND Internal Medicine Hospice and Palliative Medicine
DX: I69.354 Hemiplegia and hemiparesis following cerebral infarction affecting left non-dominant side (principal); I69.391 Dysphagia following cerebral infarction; R13.12 Dysphagia, oropharyngeal phase; I69.320 Aphasia following cerebral infarction; I69.311 Memory deficit following cerebral infarction; I69.319 Unspecified symptoms and signs involving cognitive functions following cerebral infarction; I10 Essential (primary) hypertension; E78.5 Hyperlipidemia, unspecified; R73.03 Prediabetes; R09.02 Hypoxemia
CPT/HCPCS: 92507-GN; 92523-GN; 92526-GN; 92610-GN; 97110-GP; 97112-GO; 97112-GP; 97116-GP; 97140-GO; 97161-GP; 97167-GO; 97530-GO; 97530-GP; 97535-GO; 97542-GP; J1650